=== PATIENT | male | born 1985 | race Caucasian/White ===

== ENCOUNTER 2022-01-14 14:05 | Inpatient (IN) | payer BC, SELFPAY ==
[2022-01-14] VITALS (13 sets, daily range): BP systolic 112–142; BP diastolic 68–88; PULSE 72–101; RESP 16–20; TEMP 36.9–37.2; O2SAT 94–98; BMI 45.3; BMI 43.7
--- NOTE | 2022-01-14 15:11 | CRLHL7_ITS ---
For Patients: As a result of the Century Cures Act, medical imaging exams and procedure reports are released immediately into your electronic medical record. You may view this report before your referring provider. If you have questions, please contact your health care provider. INDICATION: Acute diffuse abdominal pain. TECHNIQUE: CT abdomen and pelvis without contrast. COMPARISON: CT of the/pelvis dated 06/19/2019. FINDINGS: Lower chest: Limited evaluation secondary to motion artifact. Subpleural scarring is present in the anterior right lung base, which is not significantly changed. Few additional stable punctate pulmonary nodules. No focal consolidation. Evaluation of solid organs is limited secondary to lack of IV contrast administration. Liver: No suspicious focal hepatic lesion. Gallbladder and bile ducts: Unremarkable. Pancreas: Unremarkable. Spleen: Unremarkable. Adrenal glands: Unremarkable. Kidneys: Punctate nonobstructing calculi in the lower pole of the left kidney. No hydronephrosis bilaterally. Possible small left renal cyst. Retroperitoneum: No lymphadenopathy. Bowel and mesentery: Bowel is nonobstructed. Normal appendix. No significant ascites. Mildly dilated fluid filled short segment loop of small bowel in the left mid abdomen. No pneumoperitoneum. There are prominent mid abdominal mesenteric lymph nodes, specifically in the right abdominal mesentery which measures 1.4 x 1.7 cm with adjacent inflammatory changes (series 2, image 85). Bladder: Unremarkable for degree of distension. Reproductive organs: No significant prostatomegaly. Pelvic lymph nodes: No lymphadenopathy. Vessels: Unremarkable for unenhanced study. Abdominal wall: No acute abdominal wall abnormality. Bones: No suspicious/aggressive focal osseous lesion. IMPRESSION: 1. Prominent mid abdominal mesenteric lymph nodes, specifically a right mesenteric lymph node measuring 1.4 x 1.7 cm with adjacent inflammatory changes. 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 Recommend follow CT abdomen/pelvis in 3-6 months. 2. Mildly dilated fluid-filled short segment loop of small bowel in the left mid abdomen, favored to reflect ileus or enteritis. Small-bowel obstruction is less likely. 3. Punctate nonobstructing calculi in the lower pole of the left kidney. Please note that all CT scans at this facility use dose modulation, iterative reconstruction, and/or weight-based dosing when appropriate to reduce radiation dose to as low as reasonably achievable. Dictated by Rosendo Lofton MD @ 01/14/2022 5:04:56 PM (Electronically Signed)
[2022-01-14] MEDS: 0.9 % SODIUM CHLORIDE 1000 ml 1,000 ML IV (15:32)
[2022-01-14 15:35] LABS: Basophils Percent Auto 0.2 % (0.0-3.0); Eosinophils Percent Auto 1.1 % (0.0-7.0); Hematocrit 46.3 % (37.0-53.0); Hemoglobin* 16.1 gm/dL (13.5-17.5); Immature Granulocytes Abs Auto 0.02 K/uL (0.00-0.30); Lymphocytes Percent Auto 4.2 % (20-44); Mean Corpuscular HGB Conc 35 gm/dL (32-36); Mean Corpuscular Hemoglobin 31 pg (26-34); Mean Corpuscular Volume 88 fL (80-100); Monocytes Percent Auto 4.7 % (0.0-11.0); Neutrophils Percent Auto 89.7 % (42.0-72.0); Platelet Count* 291 K/uL (140-440); RDW Coefficient of Variation % 12.6 % (11.5-15.5); Red Blood Count 5.25 m/uL (4.30-5.90); White Blood Count* 16.05 K/uL (4.50-11.00)
[2022-01-14 15:36] LABS: Lactate* 1.1 mmol/L (0.5-1.9)
[2022-01-14 15:55] LABS: Slide Review Reflex No
[2022-01-14 16:15] LABS: Albumin* 4.8 g/dL (3.3-5.0)
[2022-01-14 16:18] LABS: Total Protein* 7.8 g/dL (6.0-8.3)
[2022-01-14 16:19] LABS: Alanine Aminotransferase* 31 U/L (4-50); Alkaline Phosphatase* 61 U/L (40-150); Aspartate Amino Transferase* 41 U/L (12-35); Bilirubin Direct* 0.5 mg/dL (0.0-0.5); Bilirubin Total* 1.2 mg/dL (0.1-1.5)
[2022-01-14 16:39] LABS: Color Urine Yellow (Yellow)
[2022-01-14 16:44] LABS: Appearance Urine Clear (Clear); Bilirubin Urine Negative (Negative); Glucose Urine Negative (Negative)
[2022-01-14 16:45] LABS: Blood Urine Trace-intact (Negative); Ketones Urine 1+ (Negative); Leukocyte Esterase Urine Negative (Negative); Nitrite Urine Negative (Negative); Protein Urine Negative (Negative); Specific Gravity Urine >= 1.030 (1.000-1.030); Urobilinogen Urine 0.2 (0.2-1.0); pH Urine 5.5 (5.0-8.5)
[2022-01-14 16:46] LABS: RBC Urine 0-2 (0-2); WBC Urine 0-2 (0-5)
[2022-01-14 16:54] LABS: Erythrocyte SedimentationRate* 8 mm/hr (2-15)
[2022-01-14 17:14] LABS: Chloride* 103 mmol/L (96-114)
[2022-01-14 17:15] LABS: Potassium* 4.4 mmol/L (3.6-5.1); Sodium* 139 mmol/L (135-149)
[2022-01-14 17:17] LABS: Creatinine* 0.9 mg/dL (0.5-1.5); Est. Creatinine Clearance* 120.85; Estimated Glomerular Filt Rate 113.51; Lipase* 67 U/L (23-300)
[2022-01-14] MEDS: MORPHINE 2 MG/ML inj IVP (17:17)
[2022-01-14 17:18] LABS: Blood Urea Nitrogen* 20 mg/dL (5-24); Carbon Dioxide* 28 mmol/L (20-32); Glucose* 81 mg/dL (60-115)
[2022-01-14 17:19] LABS: Calcium* 9.4 mg/dL (8.4-10.6)
--- NOTE | 2022-01-14 17:27 | ED.GENADULT ---
HPI - General Adult General Chief complaint: Abdominal Pain Stated complaint: Abdominal and Back Pain Time Seen by Provider: 01/14/22 15:05 Source: patient Mode of arrival: ambulatory Limitations: no limitations History of Present Illness HPI narrative: 36-year-old male coming in today complaining of abdominal pain. He felt a little bit off Wednesday and Wednesday but then the pain really started today. He describes the pain is in the right abdomen and radiates into his right back. Nothing seems to make it better. Any movement makes it worse. He denies any vomiting but has felt slightly nauseated. He has had 3 bowel movements today. He denies any urinary symptoms. He denies any fevers or chills. Pain is progressively been getting worse throughout the day. Patient does have a history of Crohn's disease and was told by his provider that pancreatitis is a side effect of his medication. Patient denies any history of intra-abdominal surgery. Related Data Home Medications Medication Instructions Recorded Confirmed azathioprine 50 mg tablet mg 01/14/22 lidocaine 3 %-hydrocortisone 0.5 % applic TOPICAL 01/14/22 topical cream Allergies Allergy/AdvReac Type Severity Reaction Status Date / Time ertapenem [From Invanz] Allergy Hives Verified 01/14/22 14:23 Review of Systems Status of ROS: Reports: 10 or more systems reviewed and unremarkable except as noted in History and below PFSH PFSH Social History Smoking Status: Never smoker Do you use any of these nicotine containing products: None Second hand tobacco smoke exposure: No How often do you have a drink containing alcohol: never How often do you have six or more drinks on one occasion: Never AUDIT-C Alcohol total score: 0 Non-prescribed substance use: denies use Active Problems (Updated 01/14/22 @ 17:34 by Neelima Palmer MD) 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 Alert and oriented. Answers questions appropriately. Mood and affect are appropriate. Thoughts are goal oriented and rational. No tangential or magical thinking noted. Patient speaks in full sentences without needing to catch their breath. HEENT: Normocephalic atraumatic. Pupils are equally round reactive to light. Extraocular muscles are intact. Conjunctivae are moist without any icterus noted. Moist mucous membranes. Posterior pharynx is normal. Neck is soft without any lymphadenopathy or thyromegaly. No masses are appreciated. Cardiovascular: Heart is regular rate and rhythm S1 and S2 are present without any murmurs. Lungs: Clear to auscultation bilaterally no wheezes rhonchi or rales are appreciated. Patient takes deep breaths without any discomfort. Abdomen: Soft and nondistended with normal bowel sounds. He has diffuse tenderness with the majority of the tenderness in the right mid abdomen radiating down to the right lower quadrant. He has no CVA tenderness. I cannot elicit his discomfort with palpation of his back. His back is normal appearance. Extremities: Bilateral lower extremities are without edema. Normal DP and PT pulses. Skin: Well perfused without any obvious rashes. Const: Vital Signs, click to edit/add: Vital Signs - 24 hr 01/14/22 14:24 Temperature 98.9 F Pulse Rate [Right Pulse Oximeter] 88 Respiratory Rate 20 Blood Pressure [Ri ght Upper Arm] 135/79 Pulse Oximetry 97 Course Course Hospital Course: IV was established and patient received a L of normal saline as well as IV morphine with good pain control. Did require repeat dosing however. Vital Signs Vital signs: Initial Vital Signs Temperature 98.9 F 01/14/22 14:24 Temperature Source Temporal Artery Scan 01/14/22 14:24 Pulse Rate 88 01/14/22 14:24 Respiratory Rate 20 01/14/22 14:24 Blood Pressure 135/79 01/14/22 14:24 Blood Pressure Mean 97 01/14/22 14:24 Blood Pressure Position Sitting 01/14/22 14:24 Pulse Oximetry 97 01/14/22 14:24 Oxygen Delivery Method 01/14/22 14:24 Vital Signs Temperature 98.9 F 01/14/22 14:24 Pulse Rate 88 01/14/22 14:24 Respiratory Rate 20 01/14/22 14:24 Blood Pressure 135/79 01/14/22 14:24 Pulse Oximetry 97 01/14/22 14:24 Temperature 98.9 F 01/14/22 14:24 Pulse Rate 88 01/14/22 14:24 Respiratory Rate 20 01/14/22 14:24 Blood Pressure 135/79 01/14/22 14:24 Pulse Oximetry 97 01/14/22 14:24 Medical Decision Making MDM Narrative Medical decision making narrative: Reviewed labs and CT findings that are consistent with sclerosing mesenteritis. Discussed this patient with Dr. Agosto, who will be accepting the patient for admission for pain management at this time. Lab Data Lab results reviewed: Yes I reviewed the patient's lab results Labs: Lab Results 01/14/22 01/14/22 01/14/22 Range/Units 15:28 15:28 15:28 WBC 16.05 H (4.50-11.00) K/uL RBC 5.25 (4.30-5.90) m/uL Hgb 16.1 (13.5-17.5) gm/dL Hct 46.3 (37.0-53.0) % MCV 88 (80-100) fL MCH 31 (26-34) pg MCHC 35 (32-36) gm/dL RDW Coeff of Gurpreet 12.6 (11.5-15.5) % Plt Count 291 (140-440) K/uL Neut % (Auto) 89.7 H (42.0-72.0) % Lymph % (Auto) 4.2 L (20-44) % Whitman % (Auto) 4.7 (0.0-11.0) % Eos % (Auto) 1.1 (0.0-7.0) % Baso % (Auto) 0.2 (0.0-3.0) % Neut # (Auto) 14.40 H (1.7-7.0) K/uL Lymph # (Auto) 0.70 L (0.90-2.90) K/uL Whitman # (Auto) 0.80 (0.00-0.90) K/UL Eos # (Auto) 0.20 (0.00-0.50) K/uL Baso # (Auto) 0.00 (0.00-0.30) K/uL Abs Immat Gran (auto) 0.02 (0.00-0.30) K/uL ESR 8 (2-15) mm/hr Sodium 139 (135-149) mmol/L Potassium 4.4 (3.6-5.1) mmol/L Chloride 103 (96-114) mmol/L Carbon Dioxide 28 (20-32) mmol/L BUN 20 (5-24) mg/dL Creatinine 0.9 (0.5-1.5) mg/dL Estimated Creat Clear 120.85 Glucose 81 (60-115) mg/dL Lactate (0.5-1.9) mmol/L Calcium 9.4 (8.4-10.6) mg/dL Total Bilirubin (0.1-1.5) mg/dL Direct Bilirubin (0.0-0.5) mg/dL AST (12-35) U/L ALT (4-50) U/L Alkaline Phosphatase (40-150) U/L C-Reactive Protein 3.0 H (0.5-1.0) mg/dL Total Protein (6.0-8.3) g/dL Albumin (3.3-5.0) g/dL Lipase 67 (23-300) U/L Urine Color (Yellow) Urine Appearance (Clear) Urine pH (5.0-8.5) Ur Specific [place] (1.000-1.030) Urine Protein (Negative) Urine Glucose (UA) (Negative) Urine Ketones (Negative) Urine Blood (Negative) Urine Nitrite (Negative) Urine Bilirubin (Negative) Urine Urobilinogen (0.2-1.0) Ur Leukocyte Esterase (Negative) Urine RBC (0-2) Urine WBC (0-5) Ur Squamous Epith Cells (None-Few) Urine Bacteria (None) 01/14/22 01/14/22 01/14/22 Range/Units 15:28 15:28 16:00 WBC (4.50-11.00) K/uL RBC (4.30-5.90) m/uL Hgb (13.5-17.5) gm/dL Hct (37.0-53.0) % MCV (80-100) fL MCH (26-34) pg MCHC (32-36) gm/dL RDW Coeff of Gurpreet (11.5-15.5) % Plt Count (140-440) K/uL Neut % (Auto) (42.0-72.0) % Lymph % (Auto) (20-44) % Whitman % (Auto) (0.0-11.0) % Eos % (Auto) (0.0-7.0) % Baso % (Auto) (0.0-3.0) % Neut # (Auto) (1.7-7.0) K/uL Lymph # (Auto) (0.90-2.90) K/uL Whitman # (Auto) (0.00-0.90) K/UL Eos # (Auto) (0.00-0.50) K/uL Baso # (Auto) (0.00-0.30) K/uL Abs Immat Gran (auto) (0.00-0.30) K/uL ESR (2-15) mm/hr Sodium (135-149) mmol/L Potassium (3.6-5.1) mmol/L Chloride (96-114) mmol/L Carbon Dioxide (20-32) mmol/L BUN (5-24) mg/dL Creatinine (0.5-1.5) mg/dL Estimated Creat Clear Glucose (60-115) mg/dL Lactate 1.1 (0.5-1.9) mmol/L Calcium (8.4-10.6) mg/dL Total Bilirubin 1.2 (0.1-1.5) mg/dL Direct Bilirubin 0.5 (0.0-0.5) mg/dL AST 41 H (12-35) U/L ALT 31 (4-50) U/L Alkaline Phosphatase 61 (40-150) U/L C-Reactive Protein (0.5-1.0) mg/dL Total Protein 7.8 (6.0-8.3) g/dL Albumin 4.8 (3.3-5.0) g/dL Lipase (23-300) U/L Urine Color Yellow (Yellow) Urine Appearance Clear (Clear) Urine pH 5.5 (5.0-8.5) Ur Specific [place] >= 1.030 (1.000-1.030) Urine Protein Negative (Negative) Urine Glucose (UA) Negative (Negative) Urine Ketones 1+ A (Negative) Urine Blood Trace-intact A (Negative) Urine Nitrite Negative (Negative) Urine Bilirubin Negative (Negative) Urine Urobilinogen 0.2 (0.2-1.0) Ur Leukocyte Esterase Negative (Negative) Urine RBC 0-2 (0-2) Urine WBC 0-2 (0-5) Ur Squamous Epith Cells None (None-Few) Urine Bacteria None (None) Imaging Data CT scan - abdomen: Attestation: I have reviewed the pertinent imaging results. Radiologist's impression: FINDINGS: Lower chest: Limited evaluation secondary to motion artifact. Subpleural scarring is present in the anterior right lung base, which is not significantly changed. Few additional stable punctate pulmonary nodules. No focal consolidation. Evaluation of solid organs is limited secondary to lack of IV contrast administration. Liver: No suspicious focal hepatic lesion. Gallbladder and bile ducts: Unremarkable. Pancreas: Unremarkable. Spleen: Unremarkable. Adrenal glands: Unremarkable. Kidneys: Punctate nonobstructing calculi in the lower pole of the left kidney. No hydronephrosis bilaterally. Possible small left renal cyst. Retroperitoneum: No lymphadenopathy. Bowel and mesentery: Bowel is nonobstructed. Normal appendix. No significant ascites. Mildly dilated fluid filled short segment loop of small bowel in the left mid abdomen. No pneumoperitoneum. There are prominent mid abdominal mesenteric lymph nodes, specifically in the right abdominal mesentery which measures 1.4 x 1.7 cm with adjacent inflammatory changes (series 2, image 85). Bladder: Unremarkable for degree of distension. Reproductive organs: No significant prostatomegaly. Pelvic lymph nodes: No lymphadenopathy. Vessels: Unremarkable for unenhanced study. Abdominal wall: No acute abdominal wall abnormality. Bones: No suspicious/aggressive focal osseous lesion. IMPRESSION: 1. Prominent mid abdominal mesenteric lymph nodes, specifically a right mesenteric lymph node measuring 1.4 x 1.7 cm with adjacent inflammatory changes. 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 Recommend follow CT abdomen/pelvis in 3-6 months. 2. Mildly dilated fluid-filled short segment loop of small bowel in the left mid abdomen, favored to reflect ileus or enteritis. Small-bowel obstruction is less likely. 3. Punctate nonobstructing calculi in the lower pole of the left kidney. Discharge Plan Discharge Clinical Impression: Sclerosing mesenteritis Patient Disposition: Admitted As Inpatient Condition: Stable Prescriptions: No Action azathioprine 50 mg tablet 0RF lidocaine HCl-hydrocortison ac 3-0.5 % cream TOPICAL 0RF Label Comments: APPLY RECTALLY TO AREA OF PAIN TWICE DAILY NEEDED Follow Up/Referrals: Lucie Haile MD [Primary Care Provider] -
--- NOTE | 2022-01-14 17:33 | P.IMHP_ITS ---
Hospitalist- H&P: HPI History of Present Illness Time Seen by Provider: 17:34 Date Seen: 01/14/22 Chief complaint: Abdominal and Back Pain Narrative: Bryson Mcpherson is a 36 year old male who presented to the ED for a 3 day history of abdominal pain. Pain started diffusely on Wednesday, improved yesterday, came back much worse today (primarily in his epigastrium). No fevers, + chills. + headache and nausea. Minimal appetite. No vomiting. Diarrhea x1 today, no blood in stool. No urinary symptoms. Talked to his GI doc today (Dr. Sommer) regarding his symptoms, who recommended holding his Azathioprine. He started this 3 weeks ago for his Crohns disease. ER Course and findings: - Morphine x2 with minimal relief of pain, Dilaudid x1 - Sclerosing mesenteritis on CT ab/pelvis - possible early ileus also noted on CT, no evidence for acute SBO Patient requiring large doses of IV pain medication, not able to safely discharge home at this time given new diagnosis of sclerosing mesenteritis. Past Medical History: Crohns Past Surgical History: Tonsillectomy Shoulder surgery Chest tube (PTX after pneumonia) Family history of Crohns, DM2. Nonsmoker, rare ETOH. Works for an [employer] locally. Lives with Flavia. 3yo and 1yo at home, also has a 6th grade stepson. [facility] Medical History (Updated 01/14/22 @ 18:02 by Enma Agosto MD) Crohn's disease Social History Smoking Status: Never smoker Do you use any of these nicotine containing products: None Second hand tobacco smoke exposure: No How often do you have a drink containing alcohol: never How often do you have six or more drinks on one occasion: Never AUDIT-C Alcohol total score: 0 Non-prescribed substance use: denies use Meds Home Medications and Allergies Home Medications Medication Instructions Recorded Confirmed Type azathioprine 50 mg tablet mg 01/14/22 History lidocaine 3 %-hydrocortisone 0.5 % applic TOPICAL 01/14/22 History topical cream Allergies Allergy/AdvReac Type Severity Reaction Status Date / Time ertapenem [From Invanz] Allergy Hives Verified 01/14/22 14:23 Exam Narrative: Exam Narrative: GEN: Alert and oriented, appears in pain but nontoxic HEENT: Normal external ears, EOMIs bilaterally, no scleral icterus CV: RRR, No concerning murmurs, rubs, or gallops R: LCTA bilaterally without concerning wheezing, rales, or rhonchi Ab: Protuberant, + discomfort with palpation diffusely, mild guarding Ext: wwp, no concerning edema Skin: No concerning skin lesions or rashes on exposed skin Neuro: Nonfocal Psych: Appropriate Const: Vital Signs, click to edit/add: Vital Signs - 24 hr 01/14/22 14:24 Temperature 98.9 F Pulse Rate [Right Pulse Oximeter] 88 Respiratory Rate 20 Blood Pressure [Ri ght Upper Arm] 135/79 Pulse Oximetry 97 Hospitalist - H&P: Result Labs Labs: Short CBC 01/14/22 Range/Units 15:28 WBC 16.05 H (4.50-11.00) K/uL Hgb 16.1 (13.5-17.5) gm/dL Hct 46.3 (37.0-53.0) % Plt Count 291 (140-440) K/uL BMP 01/14/22 15:28 Sodium 139 Potassium 4.4 Chloride 103 Carbon Dioxide 28 BUN 20 Creatinine 0.9 Glucose 81 Calcium 9.4 Liver Function 01/14/22 Range/Units 15:28 Total Bilirubin 1.2 (0.1-1.5) mg/dL Direct Bilirubin 0.5 (0.0-0.5) mg/dL AST 41 H (12-35) U/L ALT 31 (4-50) U/L Alkaline Phosphatase 61 (40-150) U/L Albumin 4.8 (3.3-5.0) g/dL Urine 01/14/22 Range/Units 16:00 Urine Color Yellow (Yellow) Urine Appearance Clear (Clear) Urine pH 5.5 (5.0-8.5) Ur Specific [place] >= 1.030 (1.000-1.030) Urine Protein Negative (Negative) Urine Glucose (UA) Negative (Negative) Assessment and Plan Assessment and plan (1) Sclerosing mesenteritis: Status: Acute (2) Crohn's disease: Status: Acute Plan Admit to the hospital and treat with IV fluids and pain medications, advance diet as tolerated. Treat sclerosing mesenteritis with prednisone and continue home azathioprine dosing. Will discuss case and plan with patient's bankruptcy manager (Dr. Sommer). Lovenox for prophylaxis. Patient requests full code status.
[2022-01-14] MEDS: HYDROmorphone 0.5 mg/0.5 ml inj IVP ×2 (18:22→21:00)
--- NOTE | 2022-01-14 19:18 | W.PC.EDHO ---
Primary Language: Yi Preferred Language: Orientation Status: [x] Alert & Oriented [] Slight Confusion [] Known Dx Dementia Transfers By: [x] Assist of 1 [] Assist of 2 [] Lift Active Medications Generic Name Dose Route Start Last Admin Trade Name Freq PRN Reason Stop Dose Admin Hydromorphone HCl 0.5 mg 01/14/22 19:03 01/14/22 18:22 Hydromorphone 0.5 Mg/0.5 Ml Inj IVP 01/14/22 19:04 0.5 mg ONCE ONE Administration Morphine Sulfate 2 mg 01/14/22 15:13 01/14/22 17:17 Morphine 2 Mg/Ml Inj IVP 2 mg Q2H PRN Administration Discontinued Medications Generic Name Dose Route Start Last Admin Trade Name Freq PRN Reason Stop Dose Admin Sodium Chloride 1,000 mls @ 1,000 mls/hr 01/14/22 15:15 01/14/22 16:40 0.9 % Sodium Chloride 1000 Ml IV 01/14/22 16:14 Infused .Q1H ADRIANO Infusion Description of Symptoms ED Triage Present Problem pt here with pain in md back that wraps around to Description his abdomen, pt told by [employer] it could be pancreatitis due to his crohn's meds, denies nausea or vomiting, pt feels gassy ED Triage Date of Onset of 01/12/22 Symptoms Female History Patient No Pain Pain Description [Medial Back] Stabbing Pain Description [Medial Back] Sharp,Dull, Achy Pain Intensity [Medial Back] 8 Pain Intensity [Medial Back] 8 Pain Intensity 6 Pain Intensity 6 Pain Intensity 6 Pain Intensity 8 Pain Scale Used [Medial Back] Numeric (1 - 10) Pain Scale Used [Medial Back] Numeric (1 - 10) Pain Scale Used Numeric (1 - 10) Pain Scale Used Numeric (1 - 10) Pain Scale Used Numeric (1 - 10) Pain Scale Used Numeric (1 - 10) IV Insertion/Site Date of IV Line Insertion [ 01/14/22 Left Antecubital] Oxygen Administration Pulse Oximetry 95 Pulse Oximetry 96 Pulse Oximetry 98 Pulse Oximetry 97 Pulse Oximetry 96 Pulse Oximetry 95 Pulse Oximetry 98 Pulse Oximetry 97 Oxygen Delivery Method Room Air Oxygen Delivery Method Room Air Oxygen Delivery Method Room Air Oxygen Delivery Method Room Air Oxygen Delivery Method Room Air Oxygen Delivery Method Room Air Oxygen Delivery Method Room Air Oxygen Delivery Method Room Air
--- NOTE | 2022-01-14 19:31 | ED.NURSE ---
Report called to M/S.
[2022-01-14] MEDS: predniSONE 20 MG TABLET 40 MG PO (19:44)
[2022-01-14 20:23] LABS: SARS PCR* Negative SARS-CoV-2 (Negative)
[2022-01-14] MEDS: 0.9 % SODIUM CHLORIDE 1000 ml 1,000 ML 125 ML IV (21:00)
[2022-01-14] MEDS: ENOXAPARIN 40 MG/0.4 ML INJ SUBCUT (22:45)
--- NOTE | 2022-01-14 22:59 | PC.NURSE ---
21-23: Pt admitted with mesenteritis exhibiting back and stomach pain, stated minimal relief from ED narcotics, thus another dose of dilaudid given with 8/10 back/stomach/headache pain becomming mild at 3/10 and headache disippated, ivf infusing, aware of full liquid diet, no further questions/concerns about disease/condition.
[2022-01-15] MEDS: HYDROmorphone 0.5 mg/0.5 ml inj IVP (01:02)
[2022-01-15 02:10] VITALS: BP 114/72; PULSE 76; RESP 16; TEMP 36.8; O2SAT 97
--- NOTE | 2022-01-15 05:05 | PC.NURSE ---
Shift Note -: Pt pleasant and cooperative, VSS, afebrile, up to BR independently. PIV intact and asymptomatic with NS running @ 125mL/hr. Pt states that pain is greatly improved from time of admission. See eMAR for medication administration.
[2022-01-15] MEDS: 0.9 % SODIUM CHLORIDE 1000 ml 1,000 ML 125 ML IV (05:51)
[2022-01-15 07:27] LABS: Basophils Absolute Auto 0.01 K/uL (0.00-0.30); Basophils Percent Auto 0.1 % (0.0-3.0); Hematocrit 42.5 % (37.0-53.0); Hemoglobin* 14.5 gm/dL (13.5-17.5); Immature Granulocytes Abs Auto 0.01 K/uL (0.00-0.30); Lymphocytes Percent Auto 8.4 % (20-44); Mean Corpuscular HGB Conc 34 gm/dL (32-36); Mean Corpuscular Hemoglobin 30 pg (26-34); Mean Corpuscular Volume 88 fL (80-100); Monocytes Percent Auto 5.3 % (0.0-11.0); Neutrophils Percent Auto 86.1 % (42.0-72.0); Platelet Count* 286 K/uL (140-440); RDW Coefficient of Variation % 12.4 % (11.5-15.5); Red Blood Count 4.82 m/uL (4.30-5.90); White Blood Count* 8.64 K/uL (4.50-11.00)
[2022-01-15 07:32] LABS: Slide Review Reflex No
[2022-01-15 07:58] LABS: Chloride* 105 mmol/L (96-114); Sodium* 138 mmol/L (135-149)
[2022-01-15 07:59] LABS: Albumin* 4.2 g/dL (3.3-5.0)
[2022-01-15 08:02] LABS: Alanine Aminotransferase* 23 U/L (4-50); Alkaline Phosphatase* 48 U/L (40-150); Aspartate Amino Transferase* 27 U/L (12-35); Bilirubin Total* 1.5 mg/dL (0.1-1.5); Blood Urea Nitrogen* 14 mg/dL (5-24); Carbon Dioxide* 25 mmol/L (20-32); Creatinine* 0.8 mg/dL (0.5-1.5); Est. Creatinine Clearance* 135.96; Estimated Glomerular Filt Rate 117.63; Glucose* 113 mg/dL (60-115); Total Protein* 6.7 g/dL (6.0-8.3)
[2022-01-15 08:03] LABS: Calcium* 8.5 mg/dL (8.4-10.6)
[2022-01-15 08:05] LABS: C Reactive Protein* 6.7 mg/dL (0.5-1.0)
[2022-01-15 08:25] VITALS: BP 109/58; PULSE 62; RESP 18; TEMP 36.4; O2SAT 96
[2022-01-15] MEDS: predniSONE 20 MG TABLET 40 MG PO (08:26)
[2022-01-15] MEDS: ACETAMINOPHEN 500 MG TABLET 1000 MG PO (08:30)
--- NOTE | 2022-01-15 13:16 | PM.DS1 ---
DS: Providers Provider Time Seen by Provider: 10:00 Date Seen: 01/15/22 Date of admission: 01/14/22 19:23 Primary care physician: Lucie Haile MD Admitting Clinician: Enma Agosto MD Consults: GI Attending Physician on discharge: Enma Agosto MD Date of Discharge: 01/15/22 DS: Diagnosis Discharge Diagnosis (1) Crohn's disease: Status: Acute (2) Sclerosing mesenteritis: Status: Acute DS: Summary Hospital Course Hospital Course: 36-year-old male admitted to the hospital on 01/14/2022 after presenting in the emergency room with abdominal pain. Imaging exhibited sclerosing mesenteritis, possible ileus noted as well. Patient had no signs or symptoms of ileus, advanced diet well and continued to pass flatus during stay. He was started on prednisone for symptoms and tolerated this well. Early during admission, did require IV narcotics for pain control, did not require any IV narcotics in the last 12 hours of stay, and felt comfortable discharging home with Tylenol and prn oxycodone for severe pain. Reviewed the case with Dr. Sommer of Gastroenterology (patient sees him as an outpatient for Crohn's management), who recommended stopping home dose of Azathioprine upon discharge and treating with prednisone as monotherapy until GI follow-up. Patient and comfortable with plan, patient discharged home in improved condition on 01/15/2022. Status at Discharge Functional status at discharge: independent ambulation Overall status at discharge: patient is progressing back to baseline Time Spent with Patient Time attestation: Total time spent providing and/or coordinating discharge services: Time spent: Greater than 30 minutes Specific discharge activities: Care coordination, Education, discharge medication prescribing Exam Narrative: Exam Narrative: GEN: Alert and oriented, answering questions appropriately. Does not appear toxic HEENT: Normal external ears, EOMIs bilaterally, no scleral icterus CV: RRR, No concerning murmurs, rubs, or gallops R: LCTA bilaterally without concerning wheezing, rales, or rhonchi Ab: ttp of abdomen noted on admission has improved Ext: wwp, no concerning edema Skin: No concerning skin lesions or rashes on exposed skin Neuro: Nonfocal Psych: Appropriate Const: Vital Signs, click to edit/add: Vital Signs - 24 hr 01/14/22 14:24 01/14/22 16:00 01/14/22 16:30 Temperature 98.9 F Pulse Rate [Right Pulse Oximeter] 88 95 101 H Pulse Rate [Right Radial] Respiratory Rate 20 Blood Pressure [Ri ght Arm] Blood Pressure [Ri ght Upper Arm] 135/79 142/68 H 130/78 Pulse Oximetry 97 98 95 01/14/22 17:00 01/14/22 17:30 01/14/22 18:00 Temperature Pulse Rate [Right Pulse Oximeter] 97 94 91 Pulse Rate [Right Radial] Respiratory Rate Blood Pressure [Ri ght Arm] Blood Pressure [Ri ght Upper Arm] 134/72 137/76 125/69 Pulse Oximetry 96 97 98 01/14/22 18:30 01/14/22 19:00 01/14/22 19:30 Temperature Pulse Rate [Right Pulse Oximeter] 90 99 96 Pulse Rate [Right Radial] Respiratory Rate Blood Pressure [Ri ght Arm] Blood Pressure [Ri ght Upper Arm] 112/72 125/69 128/74 Pulse Oximetry 96 95 95 01/14/22 20:00 01/14/22 21:43 01/14/22 23:08 Temperature 98.9 F Pulse Rate [Right Pulse Oximeter] 95 Pulse Rate [Right Radial] 80 Respiratory Rate 20 Blood Pressure [Ri ght Arm] 140/88 H Blood Pressure [Ri ght Upper Arm] 129/81 Pulse Oximetry 96 96 95 01/14/22 23:11 01/15/22 02:10 01/15/22 08:25 Temperature 98.5 F 98.2 F 97.5 F L Pulse Rate [Right Pulse Oximeter] Pulse Rate [Right Radial] 72 76 62 Respiratory Rate 16 16 18 Blood Pressure [Ri ght Arm] 121/76 114/72 109/58 L Blood Pressure [Ri ght Upper Arm] Pulse Oximetry 94 97 96 DS: Data Data Completed and Pending Completed studies during hospitalization: CT scan of abdomen pelvis Pending studies at discharge: n/a Labs on day of discharge: Labs from last 24 hours 01/15/22 01/15/22 01/14/22 06:52 06:52 18:27 WBC 8.64 RBC 4.82 Hgb 14.5 Hct 42.5 MCV 88 MCH 30 MCHC 34 RDW Coeff of Gurpreet 12.4 Plt Count 286 Neut % (Auto) 86.1 H Lymph % (Auto) 8.4 L [place] % (Auto) 5.3 Eos % (Auto) 0.0 Baso % (Auto) 0.1 Neut # (Auto) 7.40 H Lymph # (Auto) 0.70 L [place] # (Auto) 0.50 Eos # (Auto) 0.00 Baso # (Auto) 0.01 Abs Immat Gran (auto) 0.01 ESR Sodium 138 Potassium 4.0 Chloride 105 Carbon Dioxide 25 BUN 14 Creatinine 0.8 Estimated Creat Clear 135.96 Glucose 113 Lactate Calcium 8.5 Total Bilirubin 1.5 Direct Bilirubin AST 27 ALT 23 Alkaline Phosphatase 48 C-Reactive Protein 6.7 H Total Protein 6.7 Albumin 4.2 Lipase Urine Color Urine Appearance Urine pH Ur Specific [place] Urine Protein Urine Glucose (UA) Urine Ketones Urine Blood Urine Nitrite Urine Bilirubin Urine Urobilinogen Ur Leukocyte Esterase Urine RBC Urine WBC Ur Squamous Epith Cells Urine Bacteria SARS-CoV-2 (PCR) Negative SARS-CoV-2 01/14/22 01/14/22 01/14/22 16:00 15:28 15:28 WBC RBC Hgb Hct MCV MCH MCHC RDW Coeff of Gurpreet Plt Count Neut % (Auto) Lymph % (Auto) [place] % (Auto) Eos % (Auto) Baso % (Auto) Neut # (Auto) Lymph # (Auto) [place] # (Auto) Eos # (Auto) Baso # (Auto) Abs Immat Gran (auto) ESR Sodium Potassium Chloride Carbon Dioxide BUN Creatinine Estimated Creat Clear Glucose Lactate 1.1 Calcium Total Bilirubin 1.2 Direct Bilirubin 0.5 AST 41 H ALT 31 Alkaline Phosphatase 61 C-Reactive Protein Total Protein 7.8 Albumin 4.8 Lipase Urine Color Yellow Urine Appearance Clear Urine pH 5.5 Ur Specific [place] >= 1.030 Urine Protein Negative Urine Glucose (UA) Negative Urine Ketones 1+ A Urine Blood Trace-intact A Urine Nitrite Negative Urine Bilirubin Negative Urine Urobilinogen 0.2 Ur Leukocyte Esterase Negative Urine RBC 0-2 Urine WBC 0-2 Ur Squamous Epith Cells None Urine Bacteria None SARS-CoV-2 (PCR) 01/14/22 01/14/22 01/14/22 15:28 15:28 15:28 WBC 16.05 H RBC 5.25 Hgb 16.1 Hct 46.3 MCV 88 MCH 31 MCHC 35 RDW Coeff of Gurpreet 12.6 Plt Count 291 Neut % (Auto) 89.7 H Lymph % (Auto) 4.2 L [place] % (Auto) 4.7 Eos % (Auto) 1.1 Baso % (Auto) 0.2 Neut # (Auto) 14.40 H Lymph # (Auto) 0.70 L [place] # (Auto) 0.80 Eos # (Auto) 0.20 Baso # (Auto) 0.00 Abs Immat Gran (auto) 0.02 ESR 8 Sodium 139 Potassium 4.4 Chloride 103 Carbon Dioxide 28 BUN 20 Creatinine 0.9 Estimated Creat Clear 120.85 Glucose 81 Lactate Calcium 9.4 Total Bilirubin Direct Bilirubin AST ALT Alkaline Phosphatase C-Reactive Protein 3.0 H Total Protein Albumin Lipase 67 Urine Color Urine Appearance Urine pH Ur Specific [place] Urine Protein Urine Glucose (UA) Urine Ketones Urine Blood Urine Nitrite Urine Bilirubin Urine Urobilinogen Ur Leukocyte Esterase Urine RBC Urine WBC Ur Squamous Epith Cells Urine Bacteria SARS-CoV-2 (PCR) Preliminary micro results at discharge 01/14/22 16:00 Urine Culture - Preliminary Urine,Clean Catch NO GROWTH AFTER 24 HOURS Discharge Plan Discharge Disposition: Home, Self-Care Date of Admission: 01/14/22 19:23 Attending Provider on Discharge: Enma Agosto Primary Care Provider: Lucie Haile Condition: Stable Anticipated Discharge Date/Time: 01/15/22 13:07 Discharge Medications: New prednisone 10 mg tablet 10 mg PO DAILY 28 Days Qty: 70 0RF Rx Instructions: 40mg QD po x7d, then 30mg po Qd x7d, then 20mg po QD x7d, then 10mg po QD x7d, then stop oxycodone 5 mg capsule 5 mg PO BID PRN (Reason: pain) Qty: 6 0RF Held lidocaine HCl-hydrocortison ac 3-0.5 % cream TOPICAL 0RF Label Comments: APPLY RECTALLY TO AREA OF PAIN TWICE DAILY NEEDED Discontinued azathioprine 50 mg tablet 100 mg PO BID 0RF Discharge Orders: Discharge Order (Routine); Ordered 01/15/22 Ordered By: Enma Agosto Patient Education: Prednisone (By mouth), Oxycodone, Rapid Release (By mouth), Mesenteric Adenitis (GEN) Activity Level: Activity as Tolerated Activity Detail: okay to return to work on Wednesday, 01/19 Discharge Diet: Regular Follow Up Appointments: Syed Smomer MD [Staff Physician] - (See Dr. Sommer in 2-3 weeks for a recheck) Lucie Haile MD [Primary Care Provider] - (prn) Forms: [employer] Info Instructions
== END 2022-01-15 13:43 | disposition home or self-care (01) | DRG 254 ==
LOC: ED 17:34 → MEDSURG 19:25
PROVIDERS: Admitting Provider Family Medicine; Emergency Provider Family Medicine; PCP Family Medicine; Visit Provider Family Medicine
DX: K65.4 Sclerosing mesenteritis (principal); K50.90 Crohn's disease, unspecified, without complications
CPT/HCPCS: 36415; 74176; 80048; 80053; 80076; 81001; 83605; 83690; 85025; 85651; 86140; 87086; 87635; 99284; 99285; A9270; J1170; J1650; J2270; J7030; J7512

== ENCOUNTER 2022-06-02 12:09 | Emergency (ER) | payer BC, SELFPAY ==
[2022-06-02] VITALS (10 sets, daily range): BP systolic 124–144; BP diastolic 76–98; PULSE 63–83; RESP 16; TEMP 36.6; O2SAT 95–98; BMI 45.9
--- NOTE | 2022-06-02 15:03 | CRLHL7_ITS ---
For Patients: As a result of the Cures Act, medical imaging exams and procedure reports are released immediately into your electronic medical record. You may view this report before your referring provider. If you have questions, please contact your health care provider. INDICATION: Right upper quadrant pain. COMPARISON: CT chest, abdomen, pelvis 06/02/2022. TECHNIQUE: Ultrasound abdomen limited gallbladder with real time puentes scale imaging and color Doppler analysis. FINDINGS: Gallbladder: No stones or sludge. No wall thickening or pericholecystic fluid. Negative sonographic Garcia sign. Bile ducts: The common bile duct measures 5 mm in diameter. IMPRESSION: Normal sonographic appearance of the gallbladder. No biliary dilation. Dictated by Emi Li MD @ 06/02/2022 5:07:39 PM (Electronically Signed)
--- NOTE | 2022-06-02 15:03 | CRLHL7_ITS ---
For Patients: As a result of the Century Cures Act, medical imaging exams and procedure reports are released immediately into your electronic medical record. You may view this report before your referring provider. If you have questions, please contact your health care provider. INDICATION: Mid back pain. TECHNIQUE: CT chest without contrast and CT chest, abdomen and pelvis acquired with 95 cc of Isovue 370 IV contrast, dissection protocol. COMPARISON: CT abdomen 01/14/2022. FINDINGS: CHEST: Cardiovascular structures: The unenhanced images demonstrate no evidence of aortic intramural thrombus. Thoracic aorta is normal in caliber without evidence of dissection. Heart size is normal. Mediastinum and sherrie: No mass or adenopathy. Lungs and pleura: Lungs are clear. No pleural effusions. No pneumothorax. Chest wall and axilla: No mass or adenopathy. Bones: Unremarkable for age. ABDOMEN AND PELVIS: Liver: Unremarkable. Gallbladder and bile ducts: Unremarkable. Pancreas: Unremarkable. Spleen: Unremarkable. Adrenal glands: Unremarkable. Kidneys: 2 mm nonobstructing stone left kidney inferior pole. More punctate nonobstructing stone anterior to this stone. GI tract: Unremarkable. No obstruction. Normal appendix. Vascular structures: Abdominal aorta is normal in caliber without evidence of dissection. Mesenteric arteries are patent. Lymph nodes: Unremarkable. Miscellaneous: Unremarkable. No free air or significant free fluid. Pelvic Organs: Unremarkable. Bones: Unremarkable for age. IMPRESSION: No aortic dissection. No acute findings within the chest, abdomen, and pelvis. Two nonobstructing stones within the left kidney inferior pole, the largest measuring 2 mm. Please note that all CT scans at this facility use dose modulation, iterative reconstruction, and/or weight-based dosing when appropriate to reduce radiation dose to as low as reasonably achievable. Dictated by Jostin Yang MD @ 06/02/2022 4:39:20 PM (Electronically Signed)
[2022-06-02 15:44] LABS: Basophils Absolute Auto 0.02 K/uL (0.00-0.30); Basophils Percent Auto 0.2 % (0.0-3.0); Eosinophils Absolute Auto 0.42 K/uL (0.00-0.50); Eosinophils Percent Auto 5.1 % (0.0-7.0); Hematocrit 45.6 % (37.0-53.0); Hemoglobin* 15.9 gm/dL (13.5-17.5); Immature Granulocytes Abs Auto 0.02 K/uL (0.00-0.30); Immature Granulocytes Pct Auto 0.2 %; Lymphocytes Absolute Auto 3.19 K/uL (0.90-2.90); Mean Corpuscular HGB Conc 35 gm/dL (32-36); Mean Corpuscular Hemoglobin 31 pg (26-34); Mean Corpuscular Volume 88 fL (80-100); Monocytes Percent Auto 7.2 % (0.0-11.0); Neutrophils Absolute Auto 3.93 K/uL (1.7-7.0); Neutrophils Percent Auto 48.3 % (42.0-72.0); Platelet Count* 319 K/uL (140-440); RDW Coefficient of Variation % 12.7 % (11.5-15.5); Red Blood Count 5.19 m/uL (4.30-5.90); White Blood Count* 8.17 K/uL (4.50-11.00)
[2022-06-02 15:47] LABS: Slide Review Reflex No
[2022-06-02] MEDS: ACETAMINOPHEN 500 MG TABLET 1000 MG PO (15:49)
[2022-06-02 15:57] LABS: Albumin* 4.8 g/dL (3.3-5.0); Chloride* 109 mmol/L (96-114); Sodium* 142 mmol/L (135-149)
--- NOTE | 2022-06-02 15:57 | ED.NURSE ---
Ultrasound at bedside with patient for scan.
[2022-06-02 15:58] LABS: Potassium* 3.9 mmol/L (3.6-5.1)
[2022-06-02 16:00] LABS: Carbon Dioxide* 24 mmol/L (20-32); Creatinine* 0.8 mg/dL (0.5-1.5); Est. Creatinine Clearance* 130.54; Estimated Glomerular Filt Rate 117 ml/min
[2022-06-02 16:01] LABS: Alanine Aminotransferase* 33 U/L (4-50); Alkaline Phosphatase* 59 U/L (40-150); Aspartate Amino Transferase* 33 U/L (12-35); Bilirubin Direct* 0.1 mg/dL (0.0-0.5); Bilirubin Total* 0.8 mg/dL (0.1-1.5); Blood Urea Nitrogen* 17 mg/dL (5-24); Calcium* 9.1 mg/dL (8.4-10.6); Glucose* 83 mg/dL (60-115); Lipase* 67 U/L (23-300); Total Protein* 7.8 g/dL (6.0-8.3)
[2022-06-02 16:03] LABS: C Reactive Protein* 0.6 mg/dL (0.5-1.0)
--- NOTE | 2022-06-02 16:27 | ED.GENADULT ---
HPI - General Adult General Chief complaint: Back Injury/Pain Stated complaint: Upper back pain, short of breath Time Seen by Provider: 06/02/22 14:54 Source: patient Mode of arrival: ambulatory Limitations: no limitations History of Present Illness HPI narrative: 37-year-old male coming in today complaining of back pain. Pain started yesterday and got significantly worse today. Pain is located between the shoulder blades and wraps around the entire chest to the front central chest. It causes him to feel short of breath. Nothing seems to make it better, movement appears to make it worse. He has never had pain like this before. He is concerned about a potential gallbladder issue as he states several members of his family have had their gallbladders removed in the all presented with back pain. He denies any fevers or chills. No nausea or vomiting. He denies any new exercises. The pain radiates up and down the spine. He denies any neurologic deficits. No numbness or tingling of the extremities. No weakness noted. No loss of bowel or bladder function. He denies any recent traveling. No recent surgeries. He has been on Humira injections every 2 weeks for a while without any difficulty. He denies any personal or family history of blood clots that he is aware of. He denies any tobacco use. Related Data Home Medications Medication Instructions Recorded Confirmed adalimumab 80 mg/0.8 mL mg subcut 06/02/22 subcutaneous pen kit (Humira(CF) Pen Cro[facility]'s[facility] Colitis-Hid Sup Strt) Allergies Allergy/AdvReac Type Severity Reaction Status Date / Time ertapenem [From Invanz] Allergy Hives Verified 06/02/22 15:16 Review of Systems Status of ROS: Reports: 10 or more systems reviewed and unremarkable except as noted in History and below [facility] Medical History Crohn's disease Social History Smoking Status: Never smoker Do you use any of these nicotine containing products: None Second hand tobacco smoke exposure: No How often do you have a drink containing alcohol: never How often do you have six or more drinks on one occasion: Never AUDIT-C Alcohol total score: 0 Non-prescribed substance use: denies use Exam Narrative: Exam Narrative: Obese, well-developed patient in no acute distress. Alert and oriented. Answers questions appropriately. Mood and affect are appropriate. Thoughts are goal oriented and rational. No tangential or magical thinking noted. Patient speaks in full sentences without needing to catch his breath. Speech is not slurred or pressured. Voice sounds normal. HEENT: Normocephalic atraumatic. Pupils are equally round reactive to light. Extraocular muscles are intact. Conjunctivae are moist without any icterus noted. Moist mucous membranes. Posterior pharynx is normal. Neck is soft without any lymphadenopathy or thyromegaly. No masses are appreciated. Cardiovascular: Heart is regular rate and rhythm S1 and S2 are present without any murmurs. Lungs: Clear to auscultation bilaterally no wheezes rhonchi or rales are appreciated. Patient takes deep breaths without any discomfort. Abdomen: Soft and nontender nondistended with normal bowel sounds. Extremities: Bilateral lower extremities are without edema. Skin: Well perfused without any obvious rashes. Back: Normal appearance. There is no tenderness to palpation of the cervical, thoracic or lumbar spine. He has no significant tenderness at the paraspinal musculature. Strength is 5/5 of the upper and lower extremities. Cranial nerves 3-12 are normal. There is no nystagmus either horizontally or vertically. Gait is normal. Const: Vital Signs, click to edit/add: Vital Signs - 24 hr 06/02/22 12:29 06/02/22 15:15 Temperature 97.8 F Pulse Rate [Right] 63 Respiratory Rate 16 Blood Pressure [Ri ght Upper Arm] 144/85 H Pulse Oximetry 96 98 Oxygen Delivery Me thod Room Air Course Course Hospital Course: We had long discussion about what can causes symptoms. The discussed cardiac pathology, aortic dissection, muscle spasm. Patient again very concerned this is a gallbladder issue. Proceeded with lab work which was unremarkable. EKG, read by me, shows normal sinus rhythm with a pulse of 67. Troponin negative. Chest abdomen pelvis CT to rule out aortic dissection was completely unremarkable. Abdominal ultrasound was normal. Vital Signs Vital signs: Initial Vital Signs Temperature 97.8 F 06/02/22 12:29 Temperature Source Temporal Artery Scan 06/02/22 12:29 Pulse Rate 63 06/02/22 12:29 Respiratory Rate 16 06/02/22 12:29 Blood Pressure 144/85 H 06/02/22 12:29 Blood Pressure Mean 104 06/02/22 12:29 Blood Pressure Position Sitting 06/02/22 12:29 Pulse Oximetry 96 06/02/22 12:29 Oxygen Delivery Method 06/02/22 12:29 Vital Signs Temperature 97.8 F 06/02/22 12:29 Pulse Rate 63 06/02/22 12:29 Respiratory Rate 16 06/02/22 12:29 Blood Pressure 144/85 H 06/02/22 12:29 Pulse Oximetry 96 06/02/22 12:29 Oxygen Delivery Method 06/02/22 12:29 Temperature 97.8 F 06/02/22 12:29 Pulse Rate 63 06/02/22 12:29 Respiratory Rate 16 06/02/22 12:29 Blood Pressure 144/85 H 06/02/22 12:29 Pulse Oximetry 98 06/02/22 15:15 Oxygen Delivery Method 06/02/22 12:29 Medical Decision Making MDM Narrative Medical decision making narrative: 37-year-old male with back pain. We discussed musculoskeletal pain, muscle spasm. We discussed again, cardiac causes, aortic dissection, lung disease- with a completely unremarkable workup these things would be much less likely. We discussed the possibility of a PE causing his symptoms, this would be unlikely given that he has pain bilaterally across the upper back, has no alarming vital Signs and has no risk factors for PE. At this time we discussed symptomatic treatment reasons for follow-up. Patient was agreeable and had no other questions. Medical Records Medical records reviewed: Yes I reviewed the patient's medical records Lab Data Lab results reviewed: Yes I reviewed the patient's lab results Labs: Lab Results 06/02/22 06/02/22 06/02/22 Range/Units 15:29 15: 15:29 WBC 8.17 (4.50-11.00) K/uL RBC 5.19 (4.30-5.90) m/uL Hgb 15.9 (13.5-17.5) gm/dL Hct 45.6 (37.0-53.0) % MCV 88 (80-100) fL MCH 31 (26-34) pg MCHC 35 (32-36) gm/dL RDW Coeff of Gurpreet 12.7 (11.5-15.5) % Plt Count 319 (140-440) K/uL Neut % (Auto) 48.3 (42.0-72.0) % Lymph % (Auto) 39.0 (20-44) % [place] % (Auto) 7.2 (0.0-11.0) % Eos % (Auto) 5.1 (0.0-7.0) % Baso % (Auto) 0.2 (0.0-3.0) % Neut # (Auto) 3.93 (1.7-7.0) K/uL Lymph # (Auto) 3.19 H (0.90-2.90) K/uL [place] # (Auto) 0.60 (0.00-0.90) K/UL Eos # (Auto) 0.42 (0.00-0.50) K/uL Baso # (Auto) 0.02 (0.00-0.30) K/uL Abs Immat Gran (auto) 0.02 (0.00-0.30) K/uL Imm/Tot Granulo (auto) 0.2 % ESR 3 (2-15) mm/hr Sodium 142 (135-149) mmol/L Potassium 3.9 (3.6-5.1) mmol/L Chloride 109 (96-114) mmol/L Carbon Dioxide 24 (20-32) mmol/L BUN 17 (5-24) mg/dL Creatinine 0.8 (0.5-1.5) mg/dL Estimated Creat Clear 130.54 Estimated GFR 117 ml/min Glucose 83 (60-115) mg/dL Lactate (0.5-1.9) mmol/L Calcium 9.1 (8.4-10.6) mg/dL Total Bilirubin 0.8 (0.1-1.5) mg/dL Direct Bilirubin 0.1 (0.0-0.5) mg/dL AST 33 (12-35) U/L ALT 33 (4-50) U/L Alkaline Phosphatase 59 (40-150) U/L C-Reactive Protein 0.6 (0.5-1.0) mg/dL Total Protein 7.8 (6.0-8.3) g/dL Albumin 4.8 (3.3-5.0) g/dL Lipase 67 (23-300) U/L POC Troponin I (0.01-0.04) ng/ml 06/02/22 06/02/22 Range/Units 15:29 17:16 WBC (4.50-11.00) K/uL RBC (4.30-5.90) m/uL Hgb (13.5-17.5) gm/dL Hct (37.0-53.0) % MCV (80-100) fL MCH (26-34) pg MCHC (32-36) gm/dL RDW Coeff of Gurpreet (11.5-15.5) % Plt Count (140-440) K/uL Neut % (Auto) (42.0-72.0) % Lymph % (Auto) (20-44) % [place] % (Auto) (0.0-11.0) % Eos % (Auto) (0.0-7.0) % Baso % (Auto) (0.0-3.0) % Neut # (Auto) (1.7-7.0) K/uL Lymph # (Auto) (0.90-2.90) K/uL [place] # (Auto) (0.00-0.90) K/UL Eos # (Auto) (0.00-0.50) K/uL Baso # (Auto) (0.00-0.30) K/uL Abs Immat Gran (auto) (0.00-0.30) K/uL Imm/Tot Granulo (auto) % ESR (2-15) mm/hr Sodium (135-149) mmol/L Potassium (3.6-5.1) mmol/L Chloride (96-114) mmol/L Carbon Dioxide (20-32) mmol/L BUN (5-24) mg/dL Creatinine (0.5-1.5) mg/dL Estimated Creat Clear Estimated GFR ml/min Glucose (60-115) mg/dL Lactate 1.0 (0.5-1.9) mmol/L Calcium (8.4-10.6) mg/dL Total Bilirubin (0.1-1.5) mg/dL Direct Bilirubin (0.0-0.5) mg/dL AST (12-35) U/L ALT (4-50) U/L Alkaline Phosphatase (40-150) U/L C-Reactive Protein (0.5-1.0) mg/dL Total Protein (6.0-8.3) g/dL Albumin (3.3-5.0) g/dL Lipase (23-300) U/L POC Troponin I 0.00 L (0.01-0.04) ng/ml Imaging Data CT Chest/Ab/Pelvis: Attestation: I have reviewed the pertinent imaging results. Radiologist's impression: CT chest without contrast and CT chest, abdomen and pelvis acquired with 95 cc of Isovue 370 IV contrast, dissection protocol. COMPARISON: CT abdomen 01/14/2022. FINDINGS: CHEST: Cardiovascular structures: The unenhanced images demonstrate no evidence of aortic intramural thrombus. Thoracic aorta is normal in caliber without evidence of dissection. Heart size is normal. Mediastinum and sherrie: No mass or adenopathy. Lungs and pleura: Lungs are clear. No pleural effusions. No pneumothorax. Chest wall and axilla: No mass or adenopathy. Bones: Unremarkable for age. ABDOMEN AND PELVIS: Liver: Unremarkable. Gallbladder and bile ducts: Unremarkable. Pancreas: Unremarkable. Spleen: Unremarkable. Adrenal glands: Unremarkable. Kidneys: 2 mm nonobstructing stone left kidney inferior pole. More punctate nonobstructing stone anterior to this stone. GI tract: Unremarkable. No obstruction. Normal appendix. Vascular structures: Abdominal aorta is normal in caliber without evidence of dissection. Mesenteric arteries are patent. Lymph nodes: Unremarkable. Miscellaneous: Unremarkable. No free air or significant free fluid. Pelvic Organs: Unremarkable. Bones: Unremarkable for age. IMPRESSION: No aortic dissection. No acute findings within the chest, abdomen, and pelvis. Two nonobstructing stones within the left kidney inferior pole, the largest measuring 2 mm. US - abdomen: Attestation: I have reviewed the pertinent imaging results. Radiologist's impression: Ultrasound abdomen limited gallbladder with real time puentes scale imaging and color Doppler analysis. FINDINGS: Gallbladder: No stones or sludge. No wall thickening or pericholecystic fluid. Negative sonographic Garcia sign. Bile ducts: The common bile duct measures 5 mm in diameter. IMPRESSION: Normal sonographic appearance of the gallbladder. No biliary dilation. ECG Data Attestation: I personally reviewed and interpreted this ECG as follows: (Normal sinus rhythm, pulse 67) Discharge Plan Discharge Clinical Impression: Back pain Patient Disposition: Home, Self-Care Condition: Stable Additional Instructions: Okay to use Tylenol as needed for discomfort. Okay to use heat to the back as needed, do not apply heat directly to skin. Encouraged gentle stretching daily. Follow-up with things are getting worse instead of better. Prescriptions: No Action Humira(CF) Pen [id number] 80 mg/0.8 mL pen injector kit SUBCUT Follow Up/Referrals: Lucie Haile MD [Primary Care Provider] - Stand Alone Forms: [employer] Info Instructions
[2022-06-02 16:56] LABS: Erythrocyte SedimentationRate* 3 mm/hr (2-15)
== END 2022-06-02 17:53 | disposition home or self-care (01) ==
PROVIDERS: Emergency Provider Family Medicine; PCP Family Medicine
DX: M54.9 Dorsalgia, unspecified (principal)
CPT/HCPCS: 36415; 71270; 74177; 76705; 80048; 80076; 83605; 83690; 84484; 85025; 85651; 86140; 93005; 94761; 99284; 99285; A9270; Q9967

== ENCOUNTER 2023-01-11 07:30 | Outpatient (RCR) | payer BC, SELFPAY | END 2023-05-11 23:59 | disposition home or self-care (01) | PROVIDERS: PCP Family Medicine; Visit Provider Family Medicine | DX: M76.60 Achilles tendinitis, unspecified leg (principal); Z51.89 Encounter for other specified aftercare | CPT/HCPCS: 97035; 97110; 97140; 97162 ==

== ENCOUNTER 2023-02-12 01:04 | Emergency (ER) | payer BC, SELFPAY ==
[2023-02-12 01:10] VITALS: BP 142/86; PULSE 88; RESP 16; TEMP 36.4; O2SAT 96; BMI 45.9
--- NOTE | 2023-02-12 01:42 | ED.GENADULT ---
HPI - General Adult General Date Seen: 02/12/23 Chief complaint: Sore Throat Stated complaint: Sore Throat, difficulty drinking Time Seen by Provider: 02/12/23 01:21 Source: patient Mode of arrival: ambulatory Limitations: no limitations History of Present Illness HPI narrative: Patient is a 37-year-old male on chronic immunosuppression with Humira for his Crohn's disease. He was seen yesterday morning with a severe sore throat. His strep test was negative and he was told to do symptomatic care. He has been taking Tylenol and ibuprofen the sore throat has continued to get worse. Having a difficult time taking in enough fluid because of the pain. He has had no documented fever but he has had the chills. No runny nose or cough. No ill exposures. Related Data Home Medications Medication Instructions Recorded Confirmed adalimumab 80 mg/0.8 mL mg subcut 06/02/22 subcutaneous pen kit (Humira(CF) Pen Crohn's-[facility] Colitis-Hid Sup Strt) ibuprofen 02/12/23 Previous Rx's Medication Instructions Recorded amoxicillin 875 mg tablet 875 mg PO BID #14 tabs 02/12/23 prednisone 50 mg tablet 50 mg PO DAILY #5 tabs 02/12/23 Allergies Allergy/AdvReac Type Severity Reaction Status Date / Time ertapenem [From Invanz] Allergy Hives Verified 02/12/23 01:13 Review of Systems Narrative: Few of systems is outlined above otherwise noted to be negative. [facility] Medical History Crohn's disease Social History Smoking Status: Never smoker Do you use any of these nicotine containing products: None Second hand tobacco smoke exposure: No How often do you have a drink containing alcohol: never How often do you have six or more drinks on one occasion: Never AUDIT-C Alcohol total score: 0 Non-prescribed substance use: denies use Exam Narrative: Exam Narrative: Vitals noted. HEENT: Conjunctiva clear. Tympanic membranes are pearly white bilaterally. Posterior pharynx is erythematous with several small ulcers. Tonsils are surgically absent. Neck is supple with tender anterior cervical adenopathy. Lungs: Clear to auscultation in all blackburn. No wheezes, rales, rhonchi. Heart: Regular rate and rhythm without murmur. Abdomen: Soft and nontender. No guarding, rigidity, rebound. Bowel sounds are normal. No palpable masses. Extremities: No cyanosis or edema. Good distal pulses. Skin: No abnormalities noted of the exposed skin. Neurologic: Awake, alert, fully oriented. Neurologic exam is nonfocal. Const: Vital Signs, click to edit/add: Vital Signs - 24 hr 02/12/23 01:10 Temperature 97.5 F L Pulse Rate [Left P ulse Oximeter] 88 Respiratory Rate 16 Blood Pressure [Ri ght Upper Arm] 142/86 H Pulse Oximetry 96 Oxygen Delivery Me thod Room Air Course Course Hospital Course: Patient is seen and examined. He is not overtly dehydrated. He is nontoxic. I opted to empirically treat him with antibiotics and steroids. No indication for IV fluids at this time. He is given amoxicillin 500 mg orally and prednisone 50 mg orally. Vital Signs Vital signs: Initial Vital Signs Temperature 97.5 F L 02/12/23 01:10 Temperature Source Temporal Artery Scan 02/12/23 01:10 Pulse Rate 88 02/12/23 01:10 Respiratory Rate 16 02/12/23 01:10 Blood Pressure 142/86 H 02/12/23 01:10 Blood Pressure Mean 104 02/12/23 01:10 Blood Pressure Position Sitting 02/12/23 01:10 Pulse Oximetry 96 02/12/23 01:10 Oxygen Delivery Method Room Air 02/12/23 01:10 Vital Signs Temperature 97.5 F L 02/12/23 01:10 Pulse Rate 88 02/12/23 01:10 Respiratory Rate 16 02/12/23 01:10 Blood Pressure 142/86 H 02/12/23 01:10 Pulse Oximetry 96 02/12/23 01:10 Oxygen Delivery Method Room Air 02/12/23 01:10 Temperature 97.5 F L 02/12/23 01:10 Pulse Rate 88 02/12/23 01:10 Respiratory Rate 16 02/12/23 01:10 Blood Pressure 142/86 H 02/12/23 01:10 Pulse Oximetry 96 02/12/23 01:10 Oxygen Delivery Method Room Air 02/12/23 01:10 Medical Decision Making MDM Narrative Medical decision making narrative: We discussed that this may be merely a viral process that needs to run its course but with his immunosuppressed status I think it is reasonable to use an empiric course of antibiotics. I think a course of steroids will help with pain and inflammation. He is in agreement with this plan. Discharge Plan Discharge Clinical Impression: Stomatitis, Pharyngitis Patient Disposition: Home, Self-Care Condition: Improved Additional Instructions: Rest, push fluids, Tylenol 1000 mg 3 times daily for pain, ibuprofen 600 mg 3 times daily for pain. [place] one tablet every 4-6 hours for refractory pain. Prednisone 50 mg daily for five days. Amoxicillin 875 mg twice a day for seven days. Follow-up with Dr. Haile if no better over the next 3-4 days. Prescriptions: New prednisone 50 mg tablet 50 mg PO DAILY Qty: 5 0RF amoxicillin 875 mg tablet 875 mg PO BID Qty: 14 0RF No Action Humira(CF) Pen Whhfvm-NU-PD 80 mg/0.8 mL pen injector kit SUBCUT ibuprofen Follow Up/Referrals: Lucie Haile MD [Primary Care Provider] - Stand Alone Forms: [employer] Info Instructions
[2023-02-12] MEDS: AMOXICILLIN 250 MG CAPSULE 500 MG PO (02:00)
[2023-02-12] MEDS: predniSONE 10 MG TABLET 50 MG PO (02:00)
== END 2023-02-12 02:08 | disposition home or self-care (01) ==
LOC: ED 01:45
PROVIDERS: Emergency Provider Family Medicine; PCP Family Medicine
DX: J02.9 Acute pharyngitis, unspecified (principal); K12.1 Other forms of stomatitis
CPT/HCPCS: 99281; 99283; A9270; J7512

== ENCOUNTER 2023-02-14 03:38 | Emergency (ER) | payer BC, SELFPAY ==
[2023-02-14 04:05] VITALS: BP 130/89; PULSE 85; RESP 18; TEMP 37; O2SAT 96; BMI 44.6
[2023-02-14 04:30] VITALS: BP 127/87; PULSE 81; RESP 16; O2SAT 96
--- NOTE | 2023-02-14 04:48 | ED.GENADULT ---
HPI - General Adult General Stated complaint: Numbness in tongue Time Seen by Provider: 02/14/23 04:48 Source: patient Mode of arrival: ambulatory Limitations: no limitations History of Present Illness HPI narrative: 37-year-old male presents the emergency department with persistent sore throat and now having some tongue numbness and irritation of the top of the roof of the mouth. He was evaluated in the emergency department a couple of days ago. Strep test was negative. He was empirically started on prednisone, amoxicillin and given hydrocodone for pain. Patient presents to the ED in the middle of the night with no lip or tongue swelling, no breathing difficulty, no fever, no weakness. He still able to eat and drink. He is rating his pain is 7/10. He has been using Tylenol and ibuprofen intermittently as needed but not Kimberley out doses. He just became concerned that there was a potential change in wonders if the prednisone will need to be extended. He still not having any fever or GI symptoms. Past medical history notable for Crohn's disease. Only long-term medication is Humira, recent prescriptions noted as above. Socially he is a nonsmoker. He does have children which likely spread the virus to him. ROS is notable for the HEENT symptoms as above only, denies any other changes times 12 systems including no other neurological symptoms. Related Data Home Medications Medication Instructions Recorded Confirmed adalimumab 80 mg/0.8 mL mg subcut 06/02/22 subcutaneous pen kit (Humira(CF) Pen Crohn's-[facility] Colitis-Hid Sup Strt) ibuprofen 02/12/23 Previous Rx's Medication Instructions Recorded amoxicillin 875 mg tablet 875 mg PO BID #14 tabs 02/12/23 prednisone 50 mg tablet 50 mg PO DAILY #5 tabs 02/12/23 Allergies Allergy/AdvReac Type Severity Reaction Status Date / Time ertapenem [From Invanz] Allergy Hives Verified 02/12/23 01:13 [facility] Medical History Crohn's disease ?K50.90 - Crohn's disease, unspecified, without complications (ICD-10) Social History Smoking Status: Never smoker Do you use any of these nicotine containing products: None Second hand tobacco smoke exposure: No How often do you have a drink containing alcohol: never How often do you have six or more drinks on one occasion: Never AUDIT-C Alcohol total score: 0 Non-prescribed substance use: denies use Exam Const: Documenting provider has reviewed patient's vital signs: yes Common normals: no apparent distress General appearance: cooperative, comfortable and well kempt Other: Well-nourished, well-hydrated with normal mentation. HENMT: Common normals: normocephalic Head and scalp: normocephalic Face and sinus: normal facial exam Other: Lips acyanotic. Inner oral mucosa showing blistery aphthous ulcer appearance to the top of the roof of the mouth, lower inner lip. Patches on tongue. No evidence of Anaid. A few scattered blisters on the pharyngeal arches, mild postnasal drip with no exudate in the throat. Eye: Common normals: conjunctivae normal General eye: normal appearance of both eyes Conjunctiva: conjunctiva(e) normal Neck & C-Spine: Other: Mild anterior cervical and submandibular lymphadenopathy only Resp: Common normals: normal respiratory effort and no use of accessory muscles Effort & inspection: able to speak in complete sentences Psych: Appearance: well kempt Attitude: engaged Activity/motor behavior: appropriate eye contact Insight: insight good Judgement: judgment good Skin: Common normals: no rashes or lesions noted General skin exam: no rashes or lesions noted Course Course Hospital Course: Stomatitis, viral. Prior notes in interventions reviewed. Patient without clinical signs of dehydration, outpatient failure, anaphylaxis or neurological concerns. I have recommended he continue with the current plan of care. Discussed proper dosing of Tylenol and ibuprofen and reviewed alarm symptoms that would warrant ED presentation. Counseled patient that now that the blisters have appeared, it does make me more confident of the diagnosis. This virus can last 2-3 weeks. He should be mentally prepared for that. Extending the course of prednisone will not be helpful. He may continue the amoxicillin if he chooses but it is unlikely to be beneficial. See written instructions. All questions answered. Discharge Plan Discharge Clinical Impression: Stomatitis Patient Disposition: Home, Self-Care Condition: Stable Instructions: Oral Mucositis (ED) Additional Instructions: As we discussed, the patches on your tongue and blisters on the top of your mouth are a part of the virus causing your symptoms. Often, the sore throat will start before the blisters. The blisters are the Hallmark of the infection and help solidify the diagnosis. Unfortunately, the virus will in fact all the way from the lips to the anus. It is not uncommon to have GI upset, mucus stools, sore throat and mouth pain. Unfortunately this virus can last 2-3 weeks. I am glad that you have already started on steroids which is the prednisone. Unfortunately the amoxicillin will not likely help treat this infection as it only kills bacteria and this is caused by a virus. Continue using the Tylenol and ibuprofen as prescribed. Remember that proper dosing of ibuprofen is 600 mg every 6 hours and Tylenol as 1000 mg every 6 hours. You may alternate between the 2 every 3 hours. You may use [id number] throat numbing lozenges like Cepacol and Chloraseptic. There are no signs of allergic reaction or neurological concerns like stroke causing your tongue symptoms. I do not recommend further testing or treatment.? As we discussed, the virus will run its course. You do not have any work restrictions at this time.? As we discussed, coming to the emergency department if you are physically unable to hold down any liquids for well over 24 hours and or you become significantly weak from worsening infection or have other severe complications. Follow-up with your primary care provider if your symptoms have not improved 1 month from onset.? Activity Level: No Restrictions Discharge Diet: Regular Prescriptions: No Action Humira(CF) Pen Goihul-JA-GA 80 mg/0.8 mL pen injector kit SUBCUT ibuprofen prednisone 50 mg tablet 50 mg PO DAILY Qty: 5 0RF amoxicillin 875 mg tablet 875 mg PO BID Qty: 14 0RF Follow Up/Referrals: Lucie Haile MD [Primary Care Provider] - Stand Alone Forms: [employer] Info Instructions
[2023-02-14 04:56] VITALS: BP 129/86; PULSE 83; RESP 14; O2SAT 97
== END 2023-02-14 04:56 | disposition home or self-care (01) ==
LOC: ED 04:49
PROVIDERS: Emergency Provider Family Medicine; PCP Family Medicine
DX: K12.1 Other forms of stomatitis (principal)
CPT/HCPCS: 99282; 99283

== ENCOUNTER 2023-02-27 08:26 | Emergency (ER) | payer BC, SELFPAY ==
[2023-02-27 08:43] VITALS: BP 137/90; PULSE 76; RESP 18; TEMP 36.3; O2SAT 96; BMI 45.3
--- NOTE | 2023-02-27 09:23 | CRLHL7_ITS ---
For Patients: As a result of the Century Cures Act, medical imaging exams and procedure reports are released immediately into your electronic medical record. You may view this report before your referring provider. If you have questions, please contact your health care provider. Indication: Generalized abdominal pain, history of Crohn`s disease and positive for coronal [place]`s Technique: Volumetric multidetector CT images of the abdomen and pelvis were obtained after the administration of intravenous contrast. 150 cc Isovue 370 low osmolar intravenous contrast Comparison: CT abdomen and pelvis June 02, 2022 Findings: There is basilar atelectasis and parenchymal scar. There is no dense consolidation or fusion. Nodular parenchymal scarring in the peripheral right lung base is again seen. The liver is normal in attenuation without intrahepatic biliary ductal dilatation. The portal vein is patent. The gallbladder is unremarkable without evidence of radiopaque calculus. There is no significant common biliary ductal dilatation or abrupt cut off. The spleen is normal in enhancement and size. The stomach and duodenum are grossly unremarkable. The pancreas is normal in enhancement without significant atrophy. The adrenal glands are unremarkable. The kidneys demonstrate preserved corticomedullary differentiation without evidence of obstructive uropathy. There is moderate stool seen throughout the colon with fluid-filled central small bowel. No overt transmural inflammatory changes or obstruction is identified. The appendix is unremarkable. There is no significant mesenteric, retroperitoneal, or pelvic sidewall lymph nodes. The aorta is nonaneurysmal. There is no significant atherosclerotic disease appreciated. The solid pelvic viscera are grossly unremarkable. There is no free fluid or free air. The anterior abdominal wall is intact without significant hernias. The lumbar vertebral body heights are grossly maintained in satisfactory alignment without evidence of displaced fracture, lytic or blastic lesion. Impression: Minimal nonspecific fluid seen within loops of small bowel without evidence of transmural inflammatory change or obstruction. These findings may represent minimal inflammatory enteritis changes. Minimal basilar atelectasis and parenchymal scarring within the peripheral right lung base. Please note that all CT scans at this facility use dose modulation, iterative reconstruction, and/or weight-based dosing when appropriate to reduce radiation dose to as low as reasonably achievable. Dictated by Maico Whitman MD @ 02/27/2023 10:13:49 AM (Electronically Signed)
--- NOTE | 2023-02-27 09:28 | ED_ITS ---
HPI - General Adult General Time Seen by Provider: 09:00 Date Seen: 02/27/23 Chief complaint: Abdominal Pain Stated complaint: stomach pain- COVID + Time Seen by Provider: 02/27/23 08:30 History of Present Illness HPI narrative: this is a 37-year-old male with a history of Crohn's disease ( currently on Humira. Previously on azathioprine but that medication was stopped due to side effects- possiblypancreatitis). he has no other long-term medical conditions. Patient developed symptoms of sore throat and mild pain with mouth sores few weeks ago in early February. He was diagnosed clinically with [id number] disease. those sores in his throat and mouth have healed up, ending about a week or 2 ago he has been feeling, crummy for about a week with new symptoms including mild sore throat, mildly hoarse voice, nasal congestion. He has also had watery diarrhea for the past few days.He has not been coughing much. His works in a long-term care facility. She has been sick and tested positive for COVID. He did an at-home test kit yesterday and tested positive. In addition to the above symptoms, since yesterday he has also developed some periumbilical / generalized abdominal pain. He is not vomiting. He has had a very poor appetite And has poor oral intake. He is not coughing. He is not short of breath. No Chest pain. No fevers. Today he was feeling dizzy and weak, in addition to his abdominal pain and other symptoms. He called the nurse triage line and was instructed to come to the ER. He has had 3 COVID vaccines. He has never tested positive before. He has no history of kidney disease. Related Data Home Medications Medication Instructions Recorded Confirmed adalimumab 80 mg/0.8 mL mg subcut 06/02/22 subcutaneous pen kit (Humira(CF) Pen Crohn's-[facility] Colitis-Hid Sup Strt) ibuprofen 02/12/23 adalimumab 40 mg/0.4 mL 40 mg subcut Q2W 02/14/23 02/14/23 subcutaneous pen kit (Humira(CF) Pen) Previous Rx's Medication Instructions Recorded amoxicillin 875 mg tablet 875 mg PO BID #14 tabs 02/12/23 prednisone 50 mg tablet 50 mg PO DAILY #5 tabs 02/12/23 nirmatrelvir 300 mg (150 mg See Rx Instructions PO .COMPLEX 02/27/23 x2)-ritonavir 100 mg tablet,dose #30 ea pack (Paxlovid) Allergies Allergy/AdvReac Type Severity Reaction Status Date / Time ertapenem [From Invanz] Allergy Hives Verified 02/27/23 08:43 Review of Systems Narrative: As above, otherwise negative PFSH [facility] Medical History Crohn's disease ?K50.90 - Crohn's disease, unspecified, without complications (ICD-10) Social History Smoking Status: Never smoker Do you use any of these nicotine containing products: None Second hand tobacco smoke exposure: No How often do you have a drink containing alcohol: never How often do you have six or more drinks on one occasion: Never AUDIT-C Alcohol total score: 0 Non-prescribed substance use: denies use Exam Narrative: Exam Narrative: Constitutional: Appears well-developed and well-nourished. Alert. Conversant. breathing easily. Wearing a face mask. Sats 96% on room air.Non toxic. HENT: Head: Atraumatic. Nose: Nose normal. Mouth/Throat: Oral mucosa is clear and moist. no trismus. Pharynx normal. Tonsils symmetric. No tonsillar enlargement, erythema, or exudate. Eyes: Conjunctivae normal. EOM normal. Pupils equal, round, and reactive to light. No scleral icterus. Neck: Normal range of motion. Neck supple. No tracheal deviation present. Cardiovascular: Normal rate, regular rhythm. No gallop. No friction rub. No murmur heard. Symmetric radial artery pulses Pulmonary/Chest: Effort normal. No stridor. No respiratory distress. No wheezes. No rales. No rhonchi . No tenderness. Abdominal: Soft. Bowel sounds normal. No distension. No mass. Diffuse tenderness, maximum in the periumbilical region. He is visibly grimacing during palpation and seems uncomfortable. However, no definite peritoneal signs.. No rebound. No guarding. Musculoskeletal: RUE: Normal range of motion. No tenderness. No deformity LUE: Normal range of motion. No tenderness. No deformity RLE: Normal range of motion. No edema. No tenderness. No deformity LLE: Normal range of motion. No edema. No tenderness. No deformity Neurological: Alert and oriented to person, place, and time. Normal strength. CN II-VII intact. No sensory deficit. GCS eye subscore is 4. GCS verbal subscore is 5. GCS motor subscore is 6. Normal coordination Skin: Skin is warm and dry. No rash noted. No pallor. Normal capillary refill. Psychiatric: Normal mood. Normal affect. Const: Vital Signs, click to edit/add: Vital Signs - 24 hr 02/27/23 08:43 02/27/23 10:00 Temperature 97.3 F L Pulse Rate [Pulse Oximeter] 76 72 Respiratory Rate 18 Blood Pressure [Ri t Upper Arm] 137/90 H 129/80 Pulse Oximetry 96 97 Oxygen Delivery Me thod Room Air Course Course Hospital Course: Recheck-still breathing easily. Oxygen still normal. Feeling better after IV fluids. Produced urine. Vital Signs Vital signs: Initial Vital Signs Temperature 97.3 F L 02/27/23 08:43 Temperature Source Temporal Artery Scan 02/27/23 08:43 Pulse Rate 76 02/27/23 08:43 Respiratory Rate 18 02/27/23 08:43 Blood Pressure 137/90 H 02/27/23 08:43 Blood Pressure Mean 105 02/27/23 08:43 Pulse Oximetry 96 02/27/23 08:43 Oxygen Delivery Method Room Air 02/27/23 08:43 Vital Signs Temperature 97.3 F L 02/27/23 08:43 Pulse Rate 76 02/27/23 08:43 Respiratory Rate 18 02/27/23 08:43 Blood Pressure 137/90 H 02/27/23 08:43 Pulse Oximetry 96 02/27/23 08:43 Oxygen Delivery Method Room Air 02/27/23 08:43 Temperature 97.3 F L 02/27/23 08:43 Pulse Rate 72 02/27/23 10:00 Respiratory Rate 18 02/27/23 08:43 Blood Pressure 129/80 02/27/23 10:00 Pulse Oximetry 97 02/27/23 10:00 Oxygen Delivery Method Room Air 02/27/23 08:43 Medical Decision Making MDM Narrative Medical decision making narrative: 37-year-old male presents to the ER today with a constellation of symptoms including URI symptoms with nasal congestion, mild sore throat, change in his voice, ongoing for several days. He initially says the symptoms have been present for about a week, but it is difficult for him to identify specific date of onset because just prior to this illness he was recovering from [id number]-[id number] disease. He is COVID positive based on a home test. Fortunately he has had 3 COVID vaccines. he is not having any chest pain, shortness of breath. Oxygen saturations are normal and is clinically nontoxic at this time.Unfortunately he would be at risk for developing severe illness because he is immunosuppressed on Humira. We discussed Potential COVID therapy with Paxlovid. We discussed that it is really only proven to have benefit if it can be initiated within the first 5 days of illness. Upon careful questioning patient believes his symptoms problem began 5 days ago. This would put him at the outside for clinical benefit. Using shared decision-making we decided to go ahead with treatment. he also has diffuse abdominal pain and diarrhea. Symptoms are most likely related to COVID. Differential includes Crohn's flare, stricture, fistula, abscess, obstruction, as well as pancreatitis, among other causes of abdominal pain such as early appendicitis, diverticulitis, etc.. Laboratory workup and CT imaging did not show any evidence for any concerning surgical pathology. He has a history of pancreatitis but symptoms are really not suggestive of that. No clear CT evidence for pancreatitis. Unfortunately lipase reagent is out of stock and our lab so were unable to run that test this weekend. Lab Data Labs: Lab Results 02/27/23 Range/Units 09:38 WBC 4.94 (4.50-11.00) K/uL RBC 5.40 (4.30-5.90) m/uL Hgb 16.0 (13.5-17.5) gm/dL Hct 47.1 (37.0-53.0) % MCV 87 (80-100) fL MCH 30 (26-34) pg MCHC 34 (32-36) gm/dL RDW Coeff of Gurpreet 12.5 (11.5-15.5) % Plt Count 332 (140-440) K/uL Neut % (Auto) 66.1 (42.0-72.0) % Lymph % (Auto) 19.8 L (20-44) % [place] % (Auto) 10.9 (0.0-11.0) % Eos % (Auto) 2.0 (0.0-7.0) % Baso % (Auto) 0.2 (0.0-3.0) % Neut # (Auto) 3.26 (1.7-7.0) K/uL Lymph # (Auto) 1.00 (0.90-2.90) K/uL [place] # (Auto) 0.50 (0.00-0.90) K/UL Eos # (Auto) 0.10 (0.00-0.50) K/uL Baso # (Auto) 0.01 (0.00-0.30) K/uL Abs Immat Gran (auto) 0.05 (0.00-0.30) K/uL Imm/Tot Granulo (auto) 1.0 % Sodium 138 (135-149) mmol/L Potassium 4.0 (3.6-5.1) mmol/L Chloride 106 (96-114) mmol/L Carbon Dioxide 24 (20-32) mmol/L Anion Gap 8 (7-15) mEq/L BUN 19 (5-24) mg/dL Creatinine 0.7 (0.5-1.5) mg/dL Estimated Creat Clear 149.19 Estimated GFR 122 ml/min Glucose 97 (60-115) mg/dL Calcium 8.6 (8.4-10.6) mg/dL Total Bilirubin 1.2 (0.1-1.5) mg/dL AST 48 H (12-35) U/L ALT 35 (4-50) U/L Alkaline Phosphatase 54 (40-150) U/L Total Protein 7.8 (6.0-8.3) g/dL Albumin 4.5 (3.3-5.0) g/dL Lipase Cancelled Imaging Data CT scan - abdomen: Attestation: I have reviewed the pertinent imaging results. My impression: By my read- Nonspecific dilated loops of bowel. No definite inflammatory changes, obstruction, or free air. I think the pancreas looks normal Radiologist's impression: Minimal nonspecific fluid seen within loops of small bowel without evidence of transmural inflammatory change or obstruction. These findings may represent minimal inflammatory enteritis changes. Minimal basilar atelectasis and parenchymal scarring within the peripheral right lung base. Discharge Plan Discharge Clinical Impression: COVID-19 Patient Disposition: Home, Self-Care Condition: Stable Instructions: Abdominal Pain (ED), COVID-19 (Coronavirus Disease 2019) (ED) Additional Instructions: Please come back to the ER right away if you have worsening symptoms especially worsening abdominal pain, bloody or black stool, uncontrolled vomiting or if you have trouble breathing, bad cough, oxygen measurements below 90%, or any other concerns Prescriptions: New Paxlovid 300 mg (150 mg x 2)-100 mg tablets,dose pack See Rx Instructions .ROUTE .COMPLEX Qty: 30 0RF Rx Instructions: take TWO 150 mg tablets of nirmatrelvir with ONE 100 mg tablet of ritonavir twice daily for 5 days No Action Humira(CF) Pen 40 mg/0.4 mL pen injector kit 40 mg subcut Q2W Humira(CF) Pen [id number] 80 mg/0.8 mL pen injector kit SUBCUT ibuprofen prednisone 50 mg tablet 50 mg PO DAILY Qty: 5 0RF amoxicillin 875 mg tablet 875 mg PO BID Qty: 14 0RF Follow Up/Referrals: Lucie Haile MD [Primary Care Provider] - Stand Alone Forms: [employer] Info Instructions
[2023-02-27] MEDS: 0.9 % SODIUM CHLORIDE 1000 ml 1,000 ML IV (09:47)
[2023-02-27] MEDS: IBUPROFEN 200 MG TABLET 600 MG PO (09:47)
[2023-02-27 10:00] VITALS: BP 129/80; PULSE 72; O2SAT 97
[2023-02-27 10:28] LABS: Basophils Absolute Auto 0.01 K/uL (0.00-0.30); Basophils Percent Auto 0.2 % (0.0-3.0); Hematocrit 47.1 % (37.0-53.0); Immature Granulocytes Abs Auto 0.05 K/uL (0.00-0.30); Lymphocytes Percent Auto 19.8 % (20-44); Mean Corpuscular HGB Conc 34 gm/dL (32-36); Mean Corpuscular Hemoglobin 30 pg (26-34); Mean Corpuscular Volume 87 fL (80-100); Monocytes Percent Auto 10.9 % (0.0-11.0); Neutrophils Absolute Auto 3.26 K/uL (1.7-7.0); Neutrophils Percent Auto 66.1 % (42.0-72.0); Platelet Count* 332 K/uL (140-440); RDW Coefficient of Variation % 12.5 % (11.5-15.5); White Blood Count* 4.94 K/uL (4.50-11.00)
[2023-02-27 10:29] LABS: Albumin* 4.5 g/dL (3.3-5.0); Chloride* 106 mmol/L (96-114)
[2023-02-27 10:30] LABS: Sodium* 138 mmol/L (135-149)
[2023-02-27 10:32] LABS: Alkaline Phosphatase* 54 U/L (40-150); Anion Gap 8 mEq/L (7-15); Aspartate Amino Transferase* 48 U/L (12-35); Bilirubin Total* 1.2 mg/dL (0.1-1.5); Blood Urea Nitrogen* 19 mg/dL (5-24); Carbon Dioxide* 24 mmol/L (20-32); Creatinine* 0.7 mg/dL (0.5-1.5); Est. Creatinine Clearance* 149.19; Estimated Glomerular Filt Rate 122 ml/min; Total Protein* 7.8 g/dL (6.0-8.3)
[2023-02-27 10:33] LABS: Alanine Aminotransferase* 35 U/L (4-50); Calcium* 8.6 mg/dL (8.4-10.6); Glucose* 97 mg/dL (60-115)
[2023-02-27 10:34] LABS: Slide Review Reflex No
== END 2023-02-27 12:52 | disposition home or self-care (01) ==
LOC: ED 11:15
PROVIDERS: Emergency Provider Emergency Medicine; PCP Family Medicine
DX: U07.1 COVID-19 (principal)
CPT/HCPCS: 36415; 74177; 80053; 83690; 85025; 96360; 99283; 99284; 99285; A9270; J7030; Q9967

== ENCOUNTER 2023-11-19 07:30 | Outpatient (RCR) | payer BC, SELFPAY | END 2024-02-29 16:23 | disposition home or self-care (01) | PROVIDERS: PCP Family Medicine; Visit Provider Family Medicine | DX: M25.561 Pain in right knee (principal); M25.562 Pain in left knee; G89.29 Other chronic pain; M25.512 Pain in left shoulder; M62.89 Other specified disorders of muscle; R29.898 Other symptoms and signs involving the musculoskeletal system; R29.3 Abnormal posture; Z51.89 Encounter for other specified aftercare | CPT/HCPCS: 97110; 97162 ==

== ENCOUNTER 2024-06-27 19:42 | Emergency (ER) | payer BC, SELFPAY ==
[2024-06-27 19:45] VITALS: BP 143/83; PULSE 100; RESP 18; TEMP 36.5; O2SAT 96; BMI 47.4
--- NOTE | 2024-06-27 20:01 | ED.GENADULT ---
HPI - General Adult General Chief complaint: Abdominal Pain Stated complaint: Back pain, stomach pain Time Seen by Provider: 06/27/24 20:01 History of Present Illness HPI narrative: nausea most of the day, noticed back pain starting 4 hours ago and an hour ago started spreading to the stomach on L side. hx of kidney stones and states last time he had one it felt similar. tried ibuprofen and Tylenol w/o relief 39-year-old man presenting to the emergency department with concern of back pain rather sharp wrapping around his left flank into his abdomen is he gestures low here. This began about 4 hours ago after feeling somewhat nauseated over the course the day. Had a large emesis here in the room just prior to my going to see him. Has not had any fever. This he thinks feels like kidney stone he has had before. No hematuria. Reviewing record here looks like last imaging was February 2023. Diagnosis was enteritis. Reviewing CT images from that time I see an approximately 3 mm stone in the left all renal collecting system, lower pole. This is the largest stone that is visible. Both sides have small stone burden. Related Data Home Medications ?Medication ?Instructions ?Recorded ?Confirmed adalimumab 80 mg/0.8 mL mg subcut 06/02/22 subcutaneous pen kit (Humira(CF) Pen Crohn's-[facility] Colitis-Hid Sup Strt) adalimumab 40 mg/0.4 mL 40 mg subcut Q2W 02/14/23 06/27/24 subcutaneous pen kit (Humira(CF) Pen) Allergies Allergy/AdvReac Type Severity Reaction Status Date / Time ertapenem (From Invanz) Allergy Hives Verified 02/27/23 08:43 Review of Systems Status of ROS: Reports: 6 or more systems reviewed and unremarkable except as noted in History and below [facility] Medical History Kidney stones ?N20.0 - Calculus of kidney (ICD-10) Crohn's disease ?K50.90 - Crohn's disease, unspecified, without complications (ICD-10) Social History Smoking Status: Never smoker Do you use any of these nicotine containing products: None Second hand tobacco smoke exposure: No How often do you have a drink containing alcohol: never How often do you have six or more drinks on one occasion: Never AUDIT-C Alcohol total score: 0 Non-prescribed substance use: denies use Exam Narrative: Exam Narrative: Pleasant. Seated in bed. Restless. Moving his feet in apparent discomfort. Is breathing easily. Lungs appear to be clear. Heart is in elevated rate and regular rhythm. Abdomen is soft overweight. Tender to percussion the left flank in the into the mid left abdomen. Well-perfused peripherally. Const: Vital Signs, click to edit/add: Vital Signs - 24 hr 06/27/24 19:45 06/27/24 20:35 06/27/24 21:43 Temperature 97.7 F 97.7 F Pulse Rate [Pulse Oximeter] 100 Respiratory Rate 18 Blood Pressure [Ri ght Upper Arm] 143/83 H Pulse Oximetry 96 96 Oxygen Delivery Me thod Room Air 06/27/24 22:42 06/27/24 22:44 Temperature 97.7 F 97.7 F Pulse Rate [Pulse Oximeter] 82 82 Respiratory Rate 18 18 Blood Pressure [Ri ght Upper Arm] 129/74 129/74 Pulse Oximetry 96 Oxygen Delivery Me thod Room Air Documenting provider has reviewed patient's vital signs: yes Course Vital Signs Vital signs: Initial Vital Signs Temperature 97.7 F 06/27/24 19:45 Temperature Source Temporal Artery Scan 06/27/24 19:45 Pulse Rate 100 06/27/24 19:45 Respiratory Rate 18 06/27/24 19:45 Blood Pressure 143/83 H 06/27/24 19:45 Blood Pressure Mean 103 06/27/24 19:45 Blood Pressure Position Supine 06/27/24 19:45 Pulse Oximetry 96 06/27/24 19:45 Oxygen Delivery Method Room Air 06/27/24 19:45 Vital Signs Temperature 97.7 F 06/27/24 19:45 Pulse Rate 100 06/27/24 19:45 Respiratory Rate 18 06/27/24 19:45 Blood Pressure 143/83 H 06/27/24 19:45 Pulse Oximetry 96 06/27/24 19:45 Oxygen Delivery Method Room Air 06/27/24 19:45 Temperature 97.7 F 06/27/24 22:44 Pulse Rate 82 06/27/24 22:44 Respiratory Rate 18 06/27/24 22:44 Blood Pressure 129/74 06/27/24 22:44 Pulse Oximetry 96 06/27/24 22:42 Oxygen Delivery Method Room Air 06/27/24 22:42 Medications Administered Medications: Discontinued Medications Generic Name Dose Route Start Last Admin Trade Name Reshma PRN Reason Stop Dose Admin Sodium Chloride 1,000 mls @ 1,000 mls/hr 06/27/24 20:20 06/27/24 21:10 0.9 % Sodium Chloride 1000 Ml IV 06/27/24 21:19 Infused .Q1H ONE Infusion Ketorolac Tromethamine 30 mg 06/27/24 20:20 06/27/24 20:27 Ketorolac 30 Mg/Ml Inj IVP 06/27/24 20:21 30 mg ONCE ONE Administration Morphine Sulfate 4 mg 06/27/24 20:20 06/27/24 20:27 Morphine 4 Mg/Ml Inj IVP 06/27/24 20:21 4 mg ONCE ONE Administration Ondansetron HCl 4 mg 06/27/24 20:20 06/27/24 20:27 Ondansetron 2 Mg/Ml Inj IVP 06/27/24 20:21 4 mg ONCE ONE Administration Medical Decision Making MDM Narrative Medical decision making narrative: Track along his abdomen that he gestures would suggest ureteral involvement and appears to be describing renal colic type pain. Urinalysis is pending. I did discuss potentially imaging as it has been sometime since last imaging but he seems a little reluctant to do so. Will check labs. IV hydration and morphine and ketorolac and Zofran. Given history this could also represent a Crohn's flare. Pain is settled with treatment as above. Mildly elevated white count and small blood in the urine. Ultimately decides to proceed with CT imaging. CT imaging independently reviewed by me reveals small stone burden bilaterally. I do not see any ureteral stone or hydronephrosis. No stranding about the bowels. Radiology over-read below Technique: Noncontrast CT through the abdomen and pelvis with multiplanar reformats. Comparison: CT abdomen pelvis performed 02/27/2023 Findings: Lower chest: Mild bibasilar atelectasis and/or scarring. Hepatobiliary: No significant parenchymal abnormality is appreciated. Spleen: Unremarkable. Pancreas: No acute abnormality appreciated. Adrenal glands: No acute abnormality appreciated. Kidneys: Bilateral nonobstructing renal stones, [id number]-right. Bowel: No obstruction. No focal perienteric or pericolonic stranding is appreciated. The appendix is visualized and appears unremarkable. Vascular: Poorly evaluated on this noncontrast examination. Lymph nodes: Unchanged prominent left upper mesenteric nodes. Peritoneum: No free air. No free fluid. : No acute abnormality appreciated. Soft tissues: No acute abnormality appreciated. Containing umbilical hernia. Bones: No acute fracture. No lytic or blastic lesion. Impression: Bilateral non-obstructing renal stones, no hydronephrosis or other acute abnormality appreciated. Unclear etiology to this pain. But improved. May be evolving a viral gastritis/enteritis. See patient discharge plan for further discussion Unclear what this flank, abdominal pain is from. Perhaps illness will declare itself more. I am happy you are feeling better. Will be getting you some Zofran from [facility] for nausea if needed. Return for uncontrolled pain, intractable vomiting. Medical Records Medical records reviewed: Yes I reviewed the patient's medical records Lab Data Lab results reviewed: Yes I reviewed the patient's lab results Labs: Lab Results 06/27/24 06/27/24 Range/Units 20:05 20:10 WBC 12.48 H (4.50-11.00) K/uL RBC 5.74 (4.30-5.90) m/uL Hgb 17.4 (13.5-17.5) gm/dL Hct 50.2 (37.0-53.0) % MCV 88 (80-100) fL MCH 30 (26-34) pg MCHC 35 (32-36) gm/dL RDW Coeff of Gurpreet 12.8 (11.5-15.5) % Plt Count 352 (140-440) K/uL Neut % (Auto) 80.7 H (42.0-72.0) % Lymph % (Auto) 10.9 L (20-44) % [place] % (Auto) 6.3 (0.0-11.0) % Eos % (Auto) 1.8 (0.0-7.0) % Baso % (Auto) 0.2 (0.0-3.0) % Neut # (Auto) 10.10 H (1.7-7.0) K/uL Lymph # (Auto) 1.40 (0.90-2.90) K/uL [place] # (Auto) 0.80 (0.00-0.90) K/UL Eos # (Auto) 0.20 (0.00-0.50) K/uL Baso # (Auto) 0.00 (0.00-0.30) K/uL Abs Immat Gran (auto) 0.00 (0.00-0.30) K/uL Imm/Tot Granulo (auto) 0.1 % Sodium 140 (135-149) mmol/L Potassium 4.3 (3.6-5.1) mmol/L Chloride 107 (96-114) mmol/L Carbon Dioxide 21 (20-32) mmol/L Anion Gap 12 (7-15) mEq/L BUN 20 (5-24) mg/dL Creatinine 0.8 (0.5-1.5) mg/dL Estimated Creat Clear 132.04 Estimated GFR 115 ml/min Glucose 125 H (60-115) mg/dL Calcium 9.4 (8.4-10.6) mg/dL Urine Color Yellow (Yellow) Urine Appearance Clear (Clear) Urine pH 5.5 (5.0-8.5) Ur Specific [place] >= 1.030 (1.000-1.030) Urine Protein 1+ A (Negative) Urine Glucose (UA) Negative (Negative) Urine Ketones Negative (Negative) Urine Blood 1+ A (Negative) Urine Nitrite Negative (Negative) Urine Bilirubin Negative (Negative) Urine Urobilinogen 1.0 (0.2-1.0) Ur Leukocyte Esterase Negative (Negative) Urine RBC 0-2 (0-2) Urine WBC 0-2 (0-5) Ur Squamous Epith Cells None (None-Few) Urine Bacteria Few A (None) Discharge Plan Discharge Clinical Impression: Flank pain Patient Disposition: Home w/ Parent or Adult Condition: Improved Additional Instructions: Unclear what this flank, abdominal pain is from. Perhaps illness will declare itself more. I am happy you are feeling better. Will be getting you some Zofran from [facility] for nausea if needed. Return for uncontrolled pain, intractable vomiting. Prescriptions: No Action Humira(CF) Pen 40 mg/0.4 mL pen injector kit 40 mg subcut Q2W Humira(CF) Pen [id number] 80 mg/0.8 mL pen injector kit SUBCUT Follow Up/Referrals: Lucie Haile MD [Primary Care Provider] - Stand Alone Forms: [email or web address] Info Instructions
[2024-06-27 20:13] LABS: Appearance Urine Clear (Clear); Bilirubin Urine Negative (Negative); Blood Urine 1+ (Negative); Color Urine Yellow (Yellow); Glucose Urine Negative (Negative); Ketones Urine Negative (Negative); Leukocyte Esterase Urine Negative (Negative); Nitrite Urine Negative (Negative); Protein Urine 1+ (Negative); Specific Gravity Urine >= 1.030 (1.000-1.030); pH Urine 5.5 (5.0-8.5)
[2024-06-27 20:27] LABS: Bacteria Urine Few; RBC Urine 0-2 (0-2); WBC Urine 0-2 (0-5)
[2024-06-27] MEDS: MORPHINE 4 MG/ML INJ IVP (20:27)
[2024-06-27] MEDS: ONDANSETRON 2 MG/ML inj 4 MG IVP (20:27)
[2024-06-27] MEDS: KETOROLAC 30 MG/ML inj IVP (20:27)
[2024-06-27] MEDS: 0.9 % SODIUM CHLORIDE 1000 ml 1,000 ML IV (20:27)
[2024-06-27 20:32] LABS: Basophils Percent Auto 0.2 % (0.0-3.0); Eosinophils Percent Auto 1.8 % (0.0-7.0); Hematocrit 50.2 % (37.0-53.0); Hemoglobin* 17.4 gm/dL (13.5-17.5); Immature Granulocytes Pct Auto 0.1 %; Lymphocytes Percent Auto 10.9 % (20-44); Mean Corpuscular HGB Conc 35 gm/dL (32-36); Mean Corpuscular Hemoglobin 30 pg (26-34); Mean Corpuscular Volume 88 fL (80-100); Monocytes Percent Auto 6.3 % (0.0-11.0); Neutrophils Percent Auto 80.7 % (42.0-72.0); Platelet Count* 352 K/uL (140-440); RDW Coefficient of Variation % 12.8 % (11.5-15.5); Red Blood Count 5.74 m/uL (4.30-5.90); White Blood Count* 12.48 K/uL (4.50-11.00)
[2024-06-27 20:35] VITALS: O2SAT 96
[2024-06-27 20:38] LABS: Slide Review Reflex No
[2024-06-27 20:50] LABS: Chloride* 107 mmol/L (96-114); Potassium* 4.3 mmol/L (3.6-5.1); Sodium* 140 mmol/L (135-149)
[2024-06-27 20:52] LABS: Creatinine* 0.8 mg/dL (0.5-1.5); Est. Creatinine Clearance* 132.04; Estimated Glomerular Filt Rate 115 ml/min
[2024-06-27 20:53] LABS: Anion Gap 12 mEq/L (7-15); Blood Urea Nitrogen* 20 mg/dL (5-24); Calcium* 9.4 mg/dL (8.4-10.6); Carbon Dioxide* 21 mmol/L (20-32); Glucose* 125 mg/dL (60-115)
--- NOTE | 2024-06-27 21:14 | CRLHL7_ITS ---
For Patients: As a result of the Century Cures Act, medical imaging exams and procedure reports are released immediately into your electronic medical record. You may view this report before your referring provider. If you have questions, please contact your health care provider. Indication: Left flank and abdominal pain Technique: Noncontrast CT through the abdomen and pelvis with multiplanar reformats. Comparison: CT abdomen pelvis performed 02/27/2023 Findings: Lower chest: Mild bibasilar atelectasis and/or scarring. Hepatobiliary: No significant parenchymal abnormality is appreciated. Spleen: Unremarkable. Pancreas: No acute abnormality appreciated. Adrenal glands: No acute abnormality appreciated. Kidneys: Bilateral nonobstructing renal stones, [id number]-right. Bowel: No obstruction. No focal perienteric or pericolonic stranding is appreciated. The appendix is visualized and appears unremarkable. Vascular: Poorly evaluated on this noncontrast examination. Lymph nodes: Unchanged prominent left upper mesenteric nodes. Peritoneum: No free air. No free fluid. : No acute abnormality appreciated. Soft tissues: No acute abnormality appreciated. Containing umbilical hernia. Bones: No acute fracture. No lytic or blastic lesion. Impression: Bilateral non-obstructing renal stones, no hydronephrosis or other acute abnormality appreciated. Please note that all CT scans at this facility use dose modulation, iterative reconstruction, and/or weight-based dosing when appropriate to reduce radiation dose to as low as reasonably achievable. Dictated by Reji Younger MD @ 06/27/2024 10:18:17 PM (Electronically Signed)
[2024-06-27 21:43] VITALS: TEMP 36.5
[2024-06-27 22:42] VITALS: BP 129/74; PULSE 82; RESP 18; TEMP 36.5; O2SAT 96
[2024-06-27 22:44] VITALS: BP 129/74; PULSE 82; RESP 18; TEMP 36.5
== END 2024-06-27 23:18 | disposition home or self-care (01) ==
PROVIDERS: Emergency Provider Family Medicine; PCP Family Medicine
DX: R10.9 Unspecified abdominal pain (principal)
CPT/HCPCS: 36415; 74176; 80048; 81001; 81003; 85025; 87086; 94761; 96374; 96375; 99284; J1885; J2270; J2405; J7030